=== PATIENT | male | born 1975 | race Caucasian/White ===

== ENCOUNTER 2020-05-07 12:42 | Emergency (ER) | payer OTHER, SELFPAY ==
--- NOTE | 2020-05-07 12:48 | ED.EYEPROB ---
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 Severity: moderate If Pain, Quality: sharp and aching Associated symptoms: none Treatments Prior to Arrival: irrigated eye Related Data Home Medications Medication Instructions Recorded Confirmed No Home Medications 05/07/20 05/07/20 Allergies Allergy/AdvReac Type Severity Reaction Status Date / Time No Known Allergies Allergy Verified 04/18/13 03:36 Review of Systems Review of Systems: All systems reviewed & are unremarkable except as noted in HPI and below PMFSH Past Medical History Medical History (Updated 05/07/20 @ 13:21 by Ray Ramires MD) No active medical problems Surgical History Surgical History (Updated 05/07/20 @ 13:16 by Ray Ramires MD) No pertinent past surgical history Social History Social History (Updated 05/07/20 @ 13:16 by Ray Ramires MD) Smoking packs per day: 1 Smoking cigarettes per day: 20.0 Smoking status: Current every day smoker Tobacco type: cigarettes Alcohol intake: former Substance use: current Substance use type: marijuana Other substance usage details: occasional Exam Const: General: healthy appearing, no acute distress and alert Nutritional Appearance: well nourished Orientation/consciousness: patient oriented x3 HENMT: Ears: external ears normal General nose exam: Normal external nose present Face and sinus: normal facial exam Mouth: Yes Normal oral and palatal mucosa present and Yes lip normal Eyes: Cornea: corneas abnormal on the right fluorescein used and foreign body metallic, with rust ring present and at clock position (3) Pupils: Equal, round and reactive pupils present EOM: EOMs intact bilaterally Neck: Neck: normal visual inspection Resp: Effort & Inspection: normal respiratory effort Auscultation: clear to auscultation bilaterally Cardio: Rate: regular rate Rhythm: regular rhythm GI: GI Palp: Yes Soft to palpation and No Tenderness to palpation present (GI) Auscultation: normal bowel sounds Back/Spine/Pelvis: Cervical Spine: cervical ROM normal Thoracic/Lumbar Spine: thoraco-lumbar ROM normal Skin: General skin exam: normal color Rashes: no rashes Neuro: General: patient oriented x3, moves all extremities and no focal motor deficits Speech: normal speech Gait exam (Neuro): Normal gait present Extrem: General: normal to inspection and no clubbing, cyanosis or edema Psych: Appearance: grossly normal Mental Status: mental status grossly normal Affect: normal affect Attitude: cooperative Thought content: Yes Normal thought content present Procedures FB Removal Eye Foreign Body #1: Foreign Body Removal Date: 05/07/20 Foreign Body Removal Time: 13:01 Location: eye (R) Topical anesthetic used: tetracaine Foreign body: metal Evidence of corneal penetration: No Technique: irrigation, cotton tip swab and electric janey Procedure performed under: direct visualization with magnification Post-procedure medication: topical anesthetic Patient tolerated procedure: well Complications: residual rust ring Discharge Plan Discharge Clinical Impression: Corneal rust ring of right eye Eye foreign body Qualifiers: Encounter type: initial encounter Laterality: right Qualified Code(s): T15.91XA - Foreign body on external eye, part unspecified, right eye, initial encounter Prescriptions: No Action No Home Medications RF: 0 Follow-up/Referrals: UNKNOWN,DOCTOR [Primary Care Provid
[2020-05-07 12:50] VITALS: BP 124/77; PULSE 87; RESP 20; TEMP 36.7; O2SAT 97
[2020-05-07] MEDS: TOBRAMYCIN 0.3% OPHTH SOLN 5 ML 2 DROP RIGHT EYE (13:30)
--- NOTE | 2020-05-07 13:31 | PC.NURSE ---
DR GEORGE CALLED FOR CONSULT
[2020-05-07 13:55] VITALS: RESP 17
--- NOTE | 2020-05-07 14:15 | PC.NURSE ---
APPOINTMENT SET UP WITH DR WH[place] IN [place] [phone]
== END 2020-05-07 13:55 | disposition home or self-care (01) ==
PROVIDERS: Emergency Provider Emergency Medicine
DX: T15.91XA Foreign body on external eye, part unspecified, right eye, initial encounter (principal)
CPT/HCPCS: 65220; 99282; 99283; A9270

== ENCOUNTER 2020-12-19 16:23 | Inpatient (IN) | payer OTHER, SELFPAY ==
[2020-12-19] VITALS (9 sets, daily range): BP systolic 105–153; BP diastolic 59–106; PULSE 100–135; RESP 18–28; TEMP 36.9–37.2; O2SAT 90–96
--- NOTE | ~2020-12-19 | XR_ITS ---
EXAMINATION: XR chest 1V portable DATE: 12/19/2020 16:44 INDICATION: Shortness of breath. Cough. TECHNIQUE: A single frontal view of the chest was obtained on 2 radiograph. COMPARISON: Chest 2 views 07/25/2012 FINDINGS: The patient is rotated to his right. A calcified left lung nodule and calcified left hilar lymph nodes are consistent with old granulomatous disease. There are airspace opacities at right lung apex with volume loss. There are lucencies and architectural distortion in the lungs, consistent wit h emphysema. No pleural effusion or pneumothorax. The heart size is normal. There are old healed righ t rib fractures. IMPRESSION: 1. Airspace opacities at right lung apex with volume loss, consistent with infection/scarring versus malignancy. Chest CT without contrast is recommended. 2. Emphysema. Reviewed, dictated and finalized at location A. IMPRESSION: 1. Airspace opacities at right lung apex with volume loss, consistent with infe ction/scarring versus malignancy. Chest CT without contrast is recommended. 2. Emphysema.
--- NOTE | ~2020-12-19 | CT_ITS ---
EXAMINATION:CT diagnostic chest w con DATE: 12/19/2020 19:41 INDICATION: Lung mass. TECHNIQUE: Computed tomography (CT) of the chest was performed with 75 mL Omnipaque 350 intravenous c ontrast. Automated exposure control and iterative reconstruction technique were employed. The dose-le ngth product (DLP) was 159.74 mGy-cm. COMPARISON: Chest single view 12/19/2020 FINDINGS: There is severe emphysema. A calcified left lung nodule and calcified left hilar and medias tinal lymph nodes are consistent with old granulomatous disease. There is a 6 mm nodule in left upper lobe. There are centrilobular nodules in medial segment right middle lobe. There is a 6 mm nodule in right middle lobe. There are airspace opacities with volume loss, cavitation, and bronchiectasis inv olving right upper lobe, consistent with scarring. There is bronchiectasis in superior segment right lower lobe. There are nodules in superior segment right lower lobe measuring up to 9 mm. No pleural e ffusion. The heart size is normal. There is mediastinal and left hilar lymphadenopathy. For example, a subaortic node measures 3.2 x 1.8 cm. There is mild thoracic spondylosis. There is mild chronic ant erior wedging of multiple vertebral bodies. IMPRESSION: 1. Multifocal lung disease, likely chronic infection. Noncontrast low-dose chest CT is recommended in 3 months to exclude malignancy. 2. Severe emphysema. 3. Mediastinal and left hilar lymphadenopathy, which may be reactive. Reviewed, dictated and finalized at location A. IMPRESSION: 1. Multifocal lung disease, likely chronic infection. Noncontrast low-dose ches t CT is recommended in 3 months to exclude malignancy. 2. Severe emphysema. 3. Mediastinal and left hilar lymphadenopathy, which may be reactive.
--- NOTE | 2020-12-19 16:26 | ECG_ITS ---
Measurements Intervals [place] Rate: 115 P: 80 IN: 126 QRS: 50 QRSD: 94 T: 80 QT: 302 QTc: 419 Interpretive Statements SINUS TACHYCARDIA RIGHT ATRIAL ENLARGEMENT POSSIBLE LEFT ATRIAL ENLARGEMENT BORDERLINE R WAVE PROGRESSION, ANTERIOR LEADS BASELINE ARTIFACT- I, II, III, AVR, AVL, AVF, V1-V6 ABNORMAL ECG Electronically Signed On 12-19-2020 21:37:43 CDT by Sean Ornelas D.O.
[2020-12-19] MEDS: methylPREDNISolone SOD SUCC 125 MG VIAL IV PUSH (16:50)
[2020-12-19 17:02] LABS: Basophils Percent Auto 0.8 % (0.2-1.2); Eosinophils Percent Auto 0.2 % (0-4.4); Hematocrit 55.2 % (42.0-52.0); Hemoglobin 17.3 g/dL (14.0-18.0); Immature Granulocyte Absolute 0.02 K/mm3 (0.00-0.031); Immature Granulocyte Percent A 0.4 % (0-0.5); Lymphocytes Absolute Auto 1.33 K/mm3 (0.9-3.2); Lymphocytes Percent Auto 25.5 % (18.3-44.2); Mean Corpuscular HGB Conc 31.3 g/dl (32-36); Mean Corpuscular Hemoglobin 27.8 pg (26-34); Mean Corpuscular Volume 88.6 fl (80-100); Mean Platelet Volume 9.7 fl (7.4-10.4); Monocytes Absolute Auto 0.7 K/mm3 (0.1-0.6); Monocytes Percent Auto 14.2 % (2.6-8.5); Neutrophils Absolute Auto 3.1 K/mm3 (1.3-6.7); Neutrophils Percent Auto 58.9 % (45.5-73.1); Platelet Count Result 185 k/mm3 (150-375); Red Blood Count 6.23 M/mm3 (4.6-6.20); Red Cell Distribution Width 14.6 % (11.5-14.5); White Blood Count 5.2 K/mm3 (4.5-10.0)
[2020-12-19] MEDS: IPRATROPIUM BR 0.02% INH SOLN 0.5 MG/2.5 ML VIAL INHALATION (17:06)
[2020-12-19] MEDS: ALBUTEROL SULFATE NEB 2.5 MG/0.5 ML INH 5 MG INHALATION (17:06)
[2020-12-19 17:11] LABS: Alveolar/Arterial O2 Gradient 49.4 mmHg; Base Excess ABG 3.5 mEq/l (+/-2.0); Fractional Inspired Oxygen 21 %; HCO3 ABG 31.6 mEq/l (22.0-26.0); Methemoglobin ABG 0.4 %THb (0-1.5); Oxygen Content ABG 11.2 %vol (16.0-22.0); Oxyhemoglobin 48.5 % THb (90.0-100.0); PO2 FiO2 Ratio Arterial Blood 1.25 %; Reduced Hemoglobin 50.1 %THb (0-5.0); Total Hemoglobin 16.5 g/dL (12.0-18.0); pH ABG 7.326 (7.350-7.450)
[2020-12-19 17:15] LABS: PCO2 ABG 61.9 mmHg (35.0-45.0); PO2 ABG 26.2 mmHg (80.0-100.0)
[2020-12-19 17:16] LABS: Device ROOM AIR; Modified Allen's Test Pass; Oxygen Saturation ABG 42.5 % (95.0-100.0); Site Drawn RIGHT RADIAL
[2020-12-19] MEDS: ALBUTEROL SULFATE NEB 2.5 MG/0.5 ML INH 10 MG INHALATION (17:21)
[2020-12-19] MEDS: IPRATROPIUM BR 0.02% INH SOLN 0.5 MG/2.5 ML VIAL 1 MG INHALATION (17:22)
[2020-12-19 19:08] LABS: Anion Gap 10 mmol/L (8-16); Blood Urea Nitrogen 15 mg/dL (9-20); Carbon Dioxide 30 mmol/L (22-30); Chloride 96 mmol/L (98-107); Estimated CRCL calculation 115 ml/min; Estimated Glomerular Filt Rate > 60; Glucose 120 mg/dL (75-110); Potassium 4.5 mmol/L (3.4-5.0); Sodium 136 mmol/L (137-145)
--- NOTE | 2020-12-19 20:09 | ED.SOB ---
HPI - SOB/Dyspnea General Chief Complaint: Shortness of Breath/Dyspnea Stated Complaint: SOB Time Seen by Provider: 12/19/20 16:31 Source: patient and family Mode of arrival: ambulatory Limitations: no limitations History of Present Illness HPI Narrative: 45-year-old with a history of COPD here with complaints of cough occasionally productive which is mostly mucoid in nature associated with shortness of breath for last 3 days. Patient states that this morning his symptoms got worse. He denies any fever or chills. He has not got his Covid vaccination. He is describing cough not on home oxygen. MD elicited complaint: shortness of breath and cough Pertinent past history: COPD Onset (ago): day(s) (3) Timing: constant Severity: moderate Exacerbating factors: nothing Relieving factors: bronchodilators Known history of: COPD Associated symptoms: denies other symptoms Related Data Home oxygen amount: none Allergies Allergy/AdvReac Type Severity Reaction Status Date / Time No Known Allergies Allergy Verified 05/07/20 13:58 Review of Systems Review of Systems: All systems reviewed & are unremarkable except as noted in HPI and below Constitutional: Constitutional: Reports no additional constitutional complaints Eyes: Eyes: Reports no additional eye complaints ENT: Reports system reviewed and no additional complaints, except as documented Cardiovascular: Cardiovascular: Reports no additional cardiovascular complaints Respiratory: Respiratory: Reports as per HPI Gastrointestinal: Gastrointestinal: Reports no additional gastrointestinal complaints Musculoskeletal: Musculoskeletal: Reports no additional musculoskeletal complaints Neurologic: Reports system reviewed and no additional complaints, except as documented Psychiatric: Psychiatric: Reports no additional psychiatric complaints PMFSH Past Medical History Medical History No active medical problems Surgical History Surgical History No pertinent past surgical history Social History Social History (System 05/07/20 @ 13:58 by Kait Dsouza) Smoking packs per day: 1 Smoking cigarettes per day: 20.0 Smoking status: Current every day smoker Tobacco type: cigarettes Alcohol intake: former Substance use: current Substance use type: marijuana Other substance usage details: occasional Exam Narrative: Exam Narrative: GENERAL:Ill -appearing, well-nourished, and in no acute distress. HEAD: Normocephalic, atraumatic. EYES: PERRLA and EOMI. NECK: Supple. CHEST: Bilateral wheeze . No respiratory distress. HEART: Regular rate and rhythm. No murmur heard. Normal peripheral pulses. ABDOMEN: Soft, nontender, nondistended, normal active bowel sounds. EXTREMITIES: Normal range of motion. No edema. SKIN: Warm, dry, no rash. NEURO: No focal deficits. Alert and oriented x3. PSYCH: Normal mood and affect. Course Course Emergency Course: Patient received an hour-long albuterol Atrovent treatment after which she states she is feeling much better , I discussed lab, CT findings with the patient and the family patient agreeable for admission. Vital Signs Vital signs: Vital Signs Temperature 36.9 C 12/19/20 16:25 Pulse Rate 124 H 12/19/20 16:25 Respiratory Rate 28 H 12/19/20 16:25 Blood Pressure 153/106 H 12/19/20 16:25 Pulse Oximetry 90 12/19/20 16:25 Temperature 36.9 C 12/19/20 16:25 Pulse Rate 118 H 12/19/20 19:08 Respiratory Rate 21 H 12/19/20 19:08 Blood Pressure 127/61 12/19/20 19:08 Pulse Oximetry 93 12/19/20 19:08 MDM - SOB/Dyspnea Lab Data Result diagrams: 12/19/20 16:53 12/19/20 18:36 Labs: Lab Results 12/19/20 12/19/20 12/19/20 Range/Units 16:53 17:04 18:36 WBC 5.2 (4.5-10.0) K/mm3 RBC 6.23 H (4.6-6.20) M/mm3 Hgb 17.3 (14.0-18.0) g/dL Hct 55.2
[2020-12-19] MEDS: SODIUM CHLORIDE 0.9% IV 1,000 ML 125 ML IV CONT (22:55)
--- NOTE | 2020-12-19 22:57 | ADMGEN ---
This patient, Hever Sandoval III, was admitted to [facility] Surg Room 317-01. Patient/family oriented to hospital policies and general routines including ID bracelet, bed and alarms, visiting hours, pain management, procedures, bathroom and other care routines, personal items, smoking policy, room service/diet, and visiting hours. Information on how to activate the Rapid Response Team has been discussed. Patient/Family are encouraged to report perceived risks to care and to ask questions if they do not understand what they are told or what they should do.
[2020-12-19 23:51] LABS: Glucose Point of Care 207 mg/dl (65-105)
[2020-12-19 23:56] LABS: Alveolar/Arterial O2 Gradient 23.3 mmHg; Base Excess ABG 2.9 mEq/l (+/-2.0); Fractional Inspired Oxygen 21 %; HCO3 ABG 28.7 mEq/l (22.0-26.0); Oxygen Content ABG 21.4 %vol (16.0-22.0); Oxygen Saturation ABG 93.5 % (95.0-100.0); PCO2 ABG 48.2 mmHg (35.0-45.0); PO2 ABG 68.7 mmHg (80.0-100.0); PO2 FiO2 Ratio Arterial Blood 3.27 %; Total Hemoglobin 16.4 g/dL (12.0-18.0); pH ABG 7.393 (7.350-7.450)
[2020-12-19 23:58] LABS: Device ROOM AIR; Modified Allen's Test Pass; Site Drawn LEFT RADIAL
[2020-12-20] VITALS (21 sets, daily range): BP systolic 111–132; BP diastolic 63–79; PULSE 92–124; RESP 15–24; TEMP 36.5–36.9; O2SAT 90–98
[2020-12-20] MEDS: methylPREDNISolone SOD SUCC 125 MG VIAL IV PUSH
--- NOTE | 2020-12-20 00:26 | PM.IMHP ---
H&P: HPI History of Present Illness Date/Time: 12/19/20 2033 this is a 45-year-old male patient who has a history of COPD and histoplasmosis. The patient stated that he does not do any street drugs and that he just uses marijuana that he purchases at the dispensary.The patient stated that he still continues to smoke at least a pack a cigarettes a day. The patient complains of having a cough that is productive very mucousy he has been having this shortness breath for 3 days. This morning it got worse. He denied any fever chills. He has not gotten his [place] vaccine. He does not wear oxygen at home. The patient said he has had thick sputum he was not sure of the color. He does see the kettle hand here. The patient stated that he recently was treated at [facility] with several antibiotics and that it was discovered that he has histoplasmosis. The staff was getting ready to call a rapid when I assessed the patient the patient was diaphoretic and the staff told me that he was unresponsive. I used to sternal rub and I got the patient to wake up and start talking to me. He was give me a history. We applied oxygen at 2 L and obtained ABGs. 1st ABG was mixed with a pH of 7.326 and a CO2 of 61.9. That was the ABG in the emergency room. When the patient was diaphoretic we recheck the ABG in the pH was 7.393 with a CO2 of 48.2. His PO2 was 68.7. We applied oxygen at 2 L per nasal cannula. Was performed earlier in the day was read as airspace opacities at right lung base apex with volume loss consistent with infectious scarring versus malignancy chest CT without contrast is recommended and he has emphysema. Chest CT was read as multifocal lung disease likely chronic infection noncontrast low-dose chest CT is recommended 3 month severe emphysema mediastinal and left hilar lymph in adenopathy which likely may be reactive. The patient was started on Solu-Medrol and neb treatment who was also started on Levaquin in the emergency room. Since the patient told me that he has a history of histoplasmosis I did start him on ampicillin be I consulted pharmacy on the dosing. The patient is being admitted to inpatient services on the date of service of 12/19/2020. Chief Complaint: Shortness of breath Review of Systems Review of Systems: All systems reviewed & are unremarkable except as noted in HPI and below Constitutional: Constitutional: Reports as per HPI and Reports no additional constitutional complaints Eyes: Eyes: Reports as per HPI and Reports no additional eye complaints ENT: Reports system reviewed and no additional complaints, except as documented and Reports Normal hearing present Cardiovascular: Cardiovascular: Reports no additional cardiovascular complaints Respiratory: Respiratory: Reports no additional respiratory complaints and Reports no additional respiratory complaints Gastrointestinal: Gastrointestinal: Reports as per HPI and Reports no additional gastrointestinal complaints Musculoskeletal: Musculoskeletal: Reports no additional musculoskeletal complaints Integumentary/Breasts: Skin/Breast: Reports system reviewed and no additional complaints, except as docu and Reports as per HPI Neurologic: Reports system reviewed and no additional complaints, except as documented, Reports as per HPI and Reports Normal hearing present Psychiatric: Psychiatric: Reports no additional psychiatric complaints and Reports as per HPI Endocrine: Endocrine: Reports no additional endocrine complaints Hematologic/Lymphatic: Hematologic/Lymphatic: Reports no additional hematologic/lymphatic complaints Allergic/Immunologic: Allergic/Immunologic: Reports no additional allergic/immunologic complaints [facility] Past Medical History Medical History (Updated 12/20/20 @ 00:48 by Santa Cooney NP) Histoplasmosis Marijuana use No active medical problems Tobacco abuse Surgical History Surgical History (Reviewed 12/19/20 @ 20:10 by Thang Perry
[2020-12-20] MEDS: ALBUTEROL SULFATE NEB 2.5 MG/0.5 ML INH INHALATION ×4 (02:18→20:58)
[2020-12-20] MEDS: IPRATROPIUM BR 0.02% INH SOLN 0.5 MG/2.5 ML VIAL INHALATION ×4 (02:18→20:58)
[2020-12-20 06:37] LABS: Basophils Percent Auto 0.2 % (0.2-1.2); Hematocrit 48.2 % (42.0-52.0); Hemoglobin 15.6 g/dL (14.0-18.0); Immature Granulocyte Absolute 0.02 K/mm3 (0.00-0.031); Immature Granulocyte Percent A 0.4 % (0-0.5); Lymphocytes Absolute Auto 0.63 K/mm3 (0.9-3.2); Lymphocytes Percent Auto 13.3 % (18.3-44.2); Mean Corpuscular HGB Conc 32.4 g/dl (32-36); Mean Corpuscular Hemoglobin 27.8 pg (26-34); Mean Corpuscular Volume 85.9 fl (80-100); Mean Platelet Volume 9.7 fl (7.4-10.4); Monocytes Absolute Auto 0.2 K/mm3 (0.1-0.6); Monocytes Percent Auto 3.2 % (2.6-8.5); Neutrophils Absolute Auto 3.9 K/mm3 (1.3-6.7); Neutrophils Percent Auto 82.9 % (45.5-73.1); Platelet Count Result 175 k/mm3 (150-375); Red Blood Count 5.61 M/mm3 (4.6-6.20); Red Cell Distribution Width 13.3 % (11.5-14.5); White Blood Count 4.8 K/mm3 (4.5-10.0)
[2020-12-20 06:53] LABS: Anion Gap 9 mmol/L (8-16); Blood Urea Nitrogen 16 mg/dL (9-20); Calcium 8.5 mg/dL (8.4-10.2); Carbon Dioxide 28 mmol/L (22-30); Chloride 98 mmol/L (98-107); Estimated CRCL calculation 150 ml/min; Estimated Glomerular Filt Rate > 60; Glucose 181 mg/dL (75-110); Potassium 3.9 mmol/L (3.4-5.0); Sodium 135 mmol/L (137-145)
[2020-12-20 09:08] LABS: Alanine Aminotransferase 16 U/L (4-50); Albumin Level 3.8 g/dL (3.5-5.1); Alkaline Phosphatase 75 U/L (38-126); Aspartate Amino Transferase 27 U/L (17-59); Bilirubin,Total 0.2 mg/dL (0.2-1.3); CRP 6.4 mg/dL (<1.0)
[2020-12-20 09:15] LABS: NT Pro B Type Natriuretic Pept 115 pg/mL (5-100)
[2020-12-20] MEDS: ENOXAPARIN 40 MG/0.4 ML SYRINGE SUB-Q (09:27)
[2020-12-20 09:47] LABS: HIV 1/2 Ab P24 Ag Result Negative (Negative)
--- NOTE | 2020-12-20 10:29 | PM.CNPUL ---
Assessment and Plan Assessment and plan (1) Acute exacerbation of chronic obstructive airways disease: Code(s): J44.1 - Chronic obstructive pulmonary disease with (acute) exacerbation Status: Acute Assessment and Plan: Patient has severe panlobular emphysema on a CT scan of the chest and is a current tobacco user. Patient has a 3 day acute change in his pulmonary symptoms consistent with a COPD exacerbation and/or pneumonia. His CT scan does show focal consolidation in the right upper lobe although this may be chronic fibrosis. I will continue albuterol 2.5 mg nebs Q 6 hours, ipratropium 0.5 mg nebs q.6 hours and since he has no wheezing now I will discontinue his methylprednisolone and place him on prednisone 50. I will continue azithromycin ceftriaxone for possible community-acquired pneumonia. Will follow with you. (2) Histoplasmosis: Code(s): B39.9 - Histoplasmosis, unspecified Status: Chronic Assessment and Plan: By patient's account he has a history of histoplasmosis and finished 1 year of itraconazole and stabilized until 3 days ago when he developed an acute illness. I do not think this is an acute histoplasmosis infection or reactivation at this time. Urine histo antigen has been sent. History of Present Illness History of Present Illness Consult date: 12/20/20 Reason for consult: COPD Chief complaint: copd exacerbation, pneumonia Narrative: Sh 45-year-old man with a history of COPD, tobacco use, pulmonary histoplasmosis who presents with 3 days of headache, fatigue, shortness of breath, sweats, increased phlegm production and dyspnea on exertion. Patient denies any hemoptysis or chest pain. Of note patient states that his sister and daughter both recently had bronchitis and he is concerned that he caught an infection from them. Patient presented to the emergency department with a blood gas on room air of 7.33/62/26. Repeat blood gas on room air demonstrated a pH of 7.39/48/67. Patient had a white blood cell count of 5.2K. Patient had a CT scan of the chest that demonstrated severe panlobular emphysema with chronic scarring of the right upper lobe. Patient was admitted to the hospital and treated for COPD exacerbation and pneumonia with antibiotics, bronchodilators and Solu-Medrol. On the floor patient had altered mental status and was briefly placed on BiPAP 12/20 Today I saw the patient and he tells me that he is 25-50% better. He says that his cough is better and he is producing less phlegm and he can move around easy. Patient denies any hemoptysis. At baseline patient states that he can walk 2 blocks and then has to stop for dyspnea on exertion. He is not on any home oxygen and states that he just takes an albuterol inhaler. Regarding his histoplasmosis patient states that he was worked up in [address] [place] [address] and saw occupational therapy co director there (I do not have any records) who did multiple tests and after 6 months of worsening shortness of breath they then told him he had histoplasmosis. He was on and off itraconazole for approximately 45 days and then he would take a break for 45 days for approximately a year and 2018. In 2019 he tells me that they told him he should take a trick on is all for 1 year which he did. Patient stabilized over that year. Patient. The itraconazole in May of 2020. Patient states that he was stable through June, July, August, September and October up until 3 days ago when he developed this acute illness. regarding his COPD patient is a current tobacco user. Patient started smoking at age 14 smoke 1 pack per day until recently when he has cut down to 2-3 cigarettes a day. This results in a total of 35 pack years. Patient denies vaping. Patient does smoke marijuana about every 1 and half weeks. Patient did take care 1 from [id number]. 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 DATA: EXAMINATIO
[2020-12-20] MEDS: predniSONE 10 MG TABLET 50 MG PO (12:22)
--- NOTE | 2020-12-20 14:59 | PM.IMPN ---
Progress Note: A&P Assessment and Plan (1) CAP (community acquired pneumonia): Code(s): J18.9 - Pneumonia, unspecified organism Status: Acute Assessment and Plan: Symptoms consistent with pneumonia -sputum culture and histoplasmosis antigen ordered -continue ceftriaxone, azithromycin, and prednisone -pulmonology is consulted, I appreciate the recommendations -CT shows possible chronic infection, awaiting records -will draw IgG. HIV negative -blood cultures pending -influenza and COVID-19 less likely -consider infectious disease consult, await records 1st (2) Acute exacerbation of chronic obstructive airways disease: Code(s): J44.1 - Chronic obstructive pulmonary disease with (acute) exacerbation Status: Acute Assessment and Plan: Patient is improving on oral steroids, antibiotics and oxygen therapy -continue as above (3) Histoplasmosis: Code(s): B39.9 - Histoplasmosis, unspecified Status: Chronic Assessment and Plan: Will get records from [facility] -See pulmonoly note -work up in progress (4) Tobacco abuse: Code(s): Z72.0 - Tobacco use Status: Chronic Assessment and Plan: Pt denies need for nicotine patch -patient understands he needs to quit smoking (5) Marijuana use: Code(s): F12.90 - Cannabis use, unspecified, uncomplicated Status: Chronic Assessment and Plan: Patient participates in legal marijuana consumption and purchases his marijuana at the dispensary (6) Sinus tachycardia: Code(s): R00.0 - Tachycardia, unspecified Status: Acute Assessment and Plan: EKG with sinus tachycardia likely related to chronic lung disease on top of pneumonia -BNP less than 300, CHF less likely -EKG reviewed with no significant abnormalities. Patient denies chest pain -PE less likely, wells criteria 1.5 points which is unlikely (7) Acute respiratory failure with hypoxia: Code(s): J96.01 - Acute respiratory failure with hypoxia Status: Acute Assessment and Plan: 2/2 to above -continue o2 for sats >90 Time Spent With Patient Time with patient: 25 - 35 minutes Subjective Date/time seen: 12/20/20 14:59 Interval history: Pt is a 45-year-old male here for pneumonia. Patient was seen today and states he is feeling better but is still short of breath. He is coughing a lot this morning which has got a little better. He has some dyspnea on exertion to the bathroom and back but overall feeling better. He has chills and a headache He denies nausea, vomiting, fevers, chills, diarrhea or constipation. Review of Systems Review of Systems: All systems reviewed & are unremarkable except as noted in HPI and below Exam Narrative: Exam Narrative: General: Well developed well nourished patient in NAD HEENT: normocephalic Neck: supple Neuro: Alert and oriented x4 CV: Tachycardia noted on exam Resp: Decreased breath sounds. Coarse breath sounds in the right lung. Abd: Soft, non distended. No pain to palpation. Positive bowel sounds Extremities: No swelling, erythema, or pain to palpation. Objective Data Vital Signs Vital Signs: Vital Signs - 24 hr 12/19/20 16:25 12/19/20 16:31 12/19/20 17:06 Temperature 98.4 F Pulse Rate 124 H 125 H Respiratory Rate 28 H 24 H Blood Pressure 153/106 H Pulse Oximetry 90 93 12/19/20 17:20 12/19/20 18:24 12/19/20 19:08 Temperature Pulse Rate 135 H 113 H 118 H Respiratory Rate 28 H 28 H 21 H Blood Pressure 127/61 Pulse Oximetry 93 12/19/20 20:58 12/19/20 22:40 12/19/20 22:43 Temperature 98.7 F 98.9 F Pulse Rate 100 110 H 108 H Respiratory Rate 18 28 H 20 Blood Pressure 105/59 L 133/84 126/81 Pulse Oximetry 96 96 96 12/20/20 00:00 12/20/20 00:15 12/20/20 02:16 Temperature Pulse Rate 92 92 108 H Respiratory Rate 15 24 H Blood Pressure Pulse Oximetry 95 95 95
[2020-12-20] MEDS: AMPICILLIN 1 GM/NS 50 ML 1 GM/50 ML BAG IVPB (17:34)
[2020-12-20 18:22] LABS: Benzodiazepines Screen Urine Negative (Negative)
[2020-12-20 18:23] LABS: Creatine Kinase 32 U/L (55-170)
[2020-12-20 18:34] LABS: Cannabinoid Screen Urine Negative (Negative); Cocaine Screen Urine Negative (Negative); Methadone Screen Urine Negative (Negative); Opiate Screen Urine Negative (Negative); Phencyclidine Screen Urine Negative (Negative)
[2020-12-20 18:37] LABS: Barbiturate Screen Urine Negative (Negative)
[2020-12-20 19:38] LABS: Procalcitonin 0.1 ng/mL
[2020-12-21] VITALS (18 sets, daily range): BP systolic 111–129; BP diastolic 64–69; PULSE 96–137; RESP 14–24; TEMP 36.4–36.6; O2SAT 93–95
--- NOTE | 2020-12-21 | ECHO_ITS ---
Patient Info Name: Hever Sandoval Age: 45 years : 1975 Gender: Male Ht: 74 in Wt: 178 lbs BSA: 2.05 m2 HR: 102 bpm BP: 129 / 67 mmHg Technical Quality: Fair Exam Date: 12/21/2020 11:19 AM Exam Location: [facility] Pul[facility] Patient Status: Inpatient Admit Date: 12/19/2020 Staff Ordering Physician: Maria D Cortés PA-C Body Presser: Kofi Jones RDCS, RT Attending Provider: Maria D Cortés PA-C Referring Physician: Milana DO; Exam Type: CA echo doppler color flow Study Info Indications R00.0 - Tachycardia, unspecified Complete two-dimensional, color flow and Doppler transthoracic echocardiogram is performed. Summary 1. Complete two-dimensional, color flow and Doppler transthoracic echocardiogram is performed. 2. Left ventricular chamber dimension is normal. 3. Left ventricular systolic function is normal, estimated at 60-65%. 4. The left ventricular diastolic function is grade I diastolic dysfunction. 5. E/e' 7 is not elevated. Left Ventricle E/e' 7 is not elevated. Left ventricular chamber dimension is normal. Left ventricular systolic function is normal, estimated at 60-65%. The left ventricular diastolic function is grade I diastolic dysfunction. Right Ventricle Right ventricular systolic function is normal with normal TAPSE 2.1 cm. Right ventricular chamber dimension is normal. Left Atria Left atrial chamber dimension is normal. Right Atria Right atrial chamber dimension is normal. Aortic Valve The aortic valve is trileaflet. There is no aortic valve stenosis. There is no aortic valve regurgitation. Pulmonic Valve There is no pulmonic regurgitation. Mitral Valve There is no mitral valve stenosis. There is no mitral valve regurgitation. Tricuspid Valve There is no tricuspid valve regurgitation. Pericardium/Pleural There is no pericardial effusion. Inferior Vena Cava Normal inferior vena cava with >50% collapse upon inspiration consistent with normal right atrial pressure, 5 mmHg. Aorta The aortic root size at the sinus of Valsalva is normal. Left Ventricular Outflow Tract Name Value Normal LVOT 2D LVOT Diameter 2.1 cm LVOT Doppler LVOT Peak Gradient 3 mmHg LVOT Mean Gradient 2 mmHg LVOT VTI 14 cm LVOT VTI/AV VTI Ratio 0.8 LVOT Stroke Volume 49 ml LVOT CO 4.4 l/min LVOT CI 2.1 l/min/m2 Mitral Valve Name Value Normal MV Doppler MV Decel [place] 291 cm/s2 MV PHT 73 ms MV Area (PHT) 3.0 cm2 4.0-5.0 MV Diastolic Function
[2020-12-21] MEDS: AMPICILLIN 1 GM/NS 50 ML 1 GM/50 ML BAG IVPB ×2 (00:29→07:00)
[2020-12-21] MEDS: IPRATROPIUM BR 0.02% INH SOLN 0.5 MG/2.5 ML VIAL INHALATION ×4 (01:57→21:05)
[2020-12-21] MEDS: ALBUTEROL SULFATE NEB 2.5 MG/0.5 ML INH INHALATION ×4 (01:57→21:06)
[2020-12-21 06:47] LABS: Basophils Percent Auto 0.2 % (0.2-1.2); Hematocrit 47.2 % (42.0-52.0); Hemoglobin 15.3 g/dL (14.0-18.0); Immature Granulocyte Absolute 0.05 K/mm3 (0.00-0.031); Immature Granulocyte Percent A 0.3 % (0-0.5); Lymphocytes Percent Auto 15.7 % (18.3-44.2); Mean Corpuscular HGB Conc 32.4 g/dl (32-36); Mean Corpuscular Hemoglobin 28.2 pg (26-34); Mean Corpuscular Volume 86.9 fl (80-100); Mean Platelet Volume 9.8 fl (7.4-10.4); Monocytes Absolute Auto 1.4 K/mm3 (0.1-0.6); Monocytes Percent Auto 8.5 % (2.6-8.5); Neutrophils Percent Auto 75.3 % (45.5-73.1); Platelet Count Result 216 k/mm3 (150-375); Red Blood Count 5.43 M/mm3 (4.6-6.20); Red Cell Distribution Width 13.7 % (11.5-14.5); White Blood Count 15.9 K/mm3 (4.5-10.0)
[2020-12-21 07:26] LABS: Anion Gap 4 mmol/L (8-16); Blood Urea Nitrogen 24 mg/dL (9-20); Calcium 8.6 mg/dL (8.4-10.2); Carbon Dioxide 34 mmol/L (22-30); Chloride 98 mmol/L (98-107); Estimated CRCL calculation 130 ml/min; Estimated Glomerular Filt Rate > 60; Glucose 104 mg/dL (75-110); Potassium 4.7 mmol/L (3.4-5.0); Sodium 136 mmol/L (137-145)
[2020-12-21 08:02] LABS: Hemoglobin A1C 5.9 % (<5.7)
[2020-12-21] MEDS: ENOXAPARIN 40 MG/0.4 ML SYRINGE SUB-Q (09:47)
--- NOTE | 2020-12-21 14:20 | PM.IMPN ---
Progress Note: A&P Assessment and Plan (1) CAP (community acquired pneumonia): Code(s): J18.9 - Pneumonia, unspecified organism Status: Acute Assessment and Plan: Symptoms consistent with pneumonia -sputum culture did not show any organisms and histoplasmosis antigen pending -continue ceftriaxone and azithromycin -pulmonology is consulted, I appreciate the recommendations -CT shows possible chronic infection, awaiting records -HIV negative, IgG pending -influenza and COVID-19 less likely -spoke with Dr. guerrier who agrees with the current treatment at this time (2) Acute exacerbation of chronic obstructive airways disease: Code(s): J44.1 - Chronic obstructive pulmonary disease with (acute) exacerbation Status: Acute Assessment and Plan: Patient is improving -continue as above (3) Histoplasmosis: Code(s): B39.9 - Histoplasmosis, unspecified Status: Chronic Assessment and Plan: Awaiting records from [facility] -See pulmonology note -work up in progress (4) Tobacco abuse: Code(s): Z72.0 - Tobacco use Status: Chronic Assessment and Plan: Pt denies need for nicotine patch -patient understands he needs to quit smoking (5) Marijuana use: Code(s): F12.90 - Cannabis use, unspecified, uncomplicated Status: Chronic Assessment and Plan: Patient participates in legal marijuana consumption and purchases his marijuana at the dispensary (6) Sinus tachycardia: Code(s): R00.0 - Tachycardia, unspecified Status: Acute Assessment and Plan: EKG with sinus tachycardia likely related to chronic lung disease on top of pneumonia -heart rate was 98 on exam -BNP less than 300, CHF less likely -EKG reviewed with no significant abnormalities. Patient denies chest pain -PE less likely, wells criteria 1.5 points which is unlikely (7) Acute respiratory failure with hypoxia: Code(s): J96.01 - Acute respiratory failure with hypoxia Status: Acute Assessment and Plan: Resolved (8) Bacteremia: Code(s): R78.81 - Bacteremia Status: Acute Assessment and Plan: Both blood cultures are growing different types of bacteria which points to contamination -will continue with ceftriaxone and azithromycin at this time and redraw new blood cultures -infectious disease (Dr. Guerrier) was consulted and I talked to him by phone who agrees with the current treatment plan Subjective Date/time seen: 12/21/20 14:20 Interval history: Pt is a 45-year-old male here for pneumonia. Patient was seen today and states he is feeling better. He is off the oxygen and did not have any shortness of breath when walking to the bathroom. He is still coughing up a lot of phlegm. He is also having some night sweats but no further body aches. He denies chest pain, nausea, vomiting, diarrhea or constipation. Mother at bedside and answered all of her questions. Exam Narrative: Exam Narrative: General: Well developed well nourished patient in NAD HEENT: normocephalic Neck: supple Neuro: Alert and oriented x4 CV: Tachycardia noted on exam. Telemetry shows normal sinus rhythm of 98 but his heart rate was up to 150 at 5:00 a.m. Resp: Decreased breath sounds. Coarse breath sounds in the right lung. Abd: Soft, non distended. No pain to palpation. Positive bowel sounds Extremities: No swelling, erythema, or pain to palpation. Objective Data Vital Signs Vital Signs: Vital Signs - 24 hr 12/20/20 14:28 12/20/20 16:00 12/20/20 20:00 Temperature Pulse Rate 124 H 113 H 107 H Respiratory Rate 20 Blood Pressure Pulse Oximetry 12/20/20 21:00 12/20/20 21:10 12/20/20 22:00 Temperature 98.5 F Pulse Rate 103 H 107 H 101 H Respiratory Rate 24 H 22 H 20 Blood Pressure 111/68 Pulse Oximetry 91 91 97 12/20/20 23:29 12/21/20 00:00 12/21/20 02:00 Temperature
--- NOTE | 2020-12-21 14:58 | PM.PNPUL ---
Progress Note: A&P Assessment and Plan (1) Acute exacerbation of chronic obstructive airways disease: Code(s): J44.1 - Chronic obstructive pulmonary disease with (acute) exacerbation Status: Acute Assessment and Plan: 12/20 Patient has severe panlobular emphysema on a CT scan of the chest and is a current tobacco user. Patient has a 3 day acute change in his pulmonary symptoms consistent with a COPD exacerbation and/or pneumonia. His CT scan does show focal consolidation in the right upper lobe although this may be chronic fibrosis. I will continue albuterol 2.5 mg nebs Q 6 hours, ipratropium 0.5 mg nebs q.6 hours and since he has no wheezing now I will discontinue his methylprednisolone and place him on prednisone 50. I will continue azithromycin ceftriaxone for possible community-acquired pneumonia. 12/21 Patient continues to improve and states he is 80% back to baseline. He is on room air with saturations 93%. He has no wheezes today and at this time I will discontinue his systemic steroids and place him on budesonide 0.5 mg nebulized b.i.d., continue albuterol and ipratropium nebulizers at this time. I will continue ceftriaxone and azithromycin for possible community-acquired pneumonia. Id has been consulted regarding his bacillus and Gram-positive cocci in his blood cultures from 12/19 Will follow with you. (2) Histoplasmosis: Code(s): B39.9 - Histoplasmosis, unspecified Status: Chronic Assessment and Plan: By patient's account he has a history of histoplasmosis and finished 1 year of itraconazole and stabilized until 3 days ago when he developed an acute illness. I do not think this is an acute histoplasmosis infection or reactivation at this time. Urine histo antigen and urine Histoplasma antibody has been sent and are pending. Subjective Date/time seen: 12/21/20 14:58 Interval history: Reason for consult: COPD Chief complaint: copd exacerbation, pneumonia Narrative: Sh 45-year-old man with a history of COPD, tobacco use, pulmonary histoplasmosis who presents with 3 days of headache, fatigue, shortness of breath, sweats, increased phlegm production and dyspnea on exertion. Patient denies any hemoptysis or chest pain. Of note patient states that his sister and daughter both recently had bronchitis and he is concerned that he caught an infection from them. Patient presented to the emergency department with a blood gas on room air of 7.33/62/26. Repeat blood gas on room air demonstrated a pH of 7.39/48/67. Patient had a white blood cell count of 5.2K. Patient had a CT scan of the chest that demonstrated severe panlobular emphysema with chronic scarring of the right upper lobe. Patient was admitted to the hospital and treated for COPD exacerbation and pneumonia with antibiotics, bronchodilators and Solu-Medrol. On the floor patient had altered mental status and was briefly placed on BiPAP At baseline patient states that he can walk 2 blocks and then has to stop for dyspnea on exertion. He is not on any home oxygen and states that he just takes an albuterol inhaler. Regarding his histoplasmosis patient states that he was worked up in [address] [place] [address] and saw professional athlete there (I do not have any records) who did multiple tests and after 6 months of worsening shortness of breath they then told him he had histoplasmosis. He was on and off itraconazole for approximately 45 days and then he would take a break for 45 days for approximately a year and 2018. In 2019 he tells me that they told him he should take a trick on is all for 1 year which he did. Patient stabilized over that year. Patient. The itraconazole in May of 2020. Patient states that he was stable through June, July, August, September and October up until 3 days ago when he developed this acute illness. regarding his COPD patient is a current tobacco user. Patient started smoking at age 14 smoke 1 pack per day until re
[2020-12-21] MEDS: BUDESONIDE RESPULE NEB 0.5 MG/2 ML AMP INHALATION (21:05)
[2020-12-22] VITALS (19 sets, daily range): BP systolic 113–117; BP diastolic 61–69; PULSE 93–131; RESP 16–20; TEMP 36.5–36.8; O2SAT 93–98
[2020-12-22] MEDS: IPRATROPIUM BR 0.02% INH SOLN 0.5 MG/2.5 ML VIAL INHALATION ×4 (03:14→20:59)
[2020-12-22] MEDS: ALBUTEROL SULFATE NEB 2.5 MG/0.5 ML INH INHALATION ×4 (03:14→20:59)
[2020-12-22 06:41] LABS: Basophils Percent Auto 0.3 % (0.2-1.2); Eosinophils Absolute Auto 0.1 K/mm3 (0-0.3); Eosinophils Percent Auto 0.8 % (0-4.4); Hematocrit 46.1 % (42.0-52.0); Hemoglobin 14.6 g/dL (14.0-18.0); Immature Granulocyte Absolute 0.02 K/mm3 (0.00-0.031); Immature Granulocyte Percent A 0.2 % (0-0.5); Lymphocytes Absolute Auto 3.84 K/mm3 (0.9-3.2); Lymphocytes Percent Auto 44.2 % (18.3-44.2); Mean Corpuscular HGB Conc 31.7 g/dl (32-36); Mean Corpuscular Volume 88.5 fl (80-100); Mean Platelet Volume 10.1 fl (7.4-10.4); Monocytes Absolute Auto 0.6 K/mm3 (0.1-0.6); Monocytes Percent Auto 7.2 % (2.6-8.5); Neutrophils Absolute Auto 4.1 K/mm3 (1.3-6.7); Neutrophils Percent Auto 47.3 % (45.5-73.1); Platelet Count Result 196 k/mm3 (150-375); Red Blood Count 5.21 M/mm3 (4.6-6.20); Red Cell Distribution Width 14.1 % (11.5-14.5); White Blood Count 8.7 K/mm3 (4.5-10.0)
[2020-12-22 06:50] LABS: Anion Gap 1 mmol/L (8-16); Blood Urea Nitrogen 22 mg/dL (9-20); Carbon Dioxide 34 mmol/L (22-30); Chloride 101 mmol/L (98-107); Estimated CRCL calculation 130 ml/min; Estimated Glomerular Filt Rate > 60; Glucose 93 mg/dL (75-110); Potassium 4.1 mmol/L (3.4-5.0); Sodium 136 mmol/L (137-145)
[2020-12-22] MEDS: ENOXAPARIN 40 MG/0.4 ML SYRINGE SUB-Q (08:31)
[2020-12-22] MEDS: BUDESONIDE RESPULE NEB 0.5 MG/2 ML AMP INHALATION ×2 (09:11→20:59)
--- NOTE | 2020-12-22 10:45 | PM.IMPN ---
Progress Note: A&P Assessment and Plan (1) CAP (community acquired pneumonia): Code(s): J18.9 - Pneumonia, unspecified organism Status: Acute Assessment and Plan: Symptoms consistent with pneumonia -sputum culture did not show any organisms and histoplasmosis antigen pending -continue ceftriaxone and azithromycin, the patient is improving with this therapy -pulmonology is consulted, I appreciate the recommendations -CT shows possible chronic infection -HIV negative, IgG pending -influenza and COVID-19 less likely -spoke with Dr. guerrier who agrees with the current treatment at this time (2) Acute exacerbation of chronic obstructive airways disease: Code(s): J44.1 - Chronic obstructive pulmonary disease with (acute) exacerbation Status: Acute Assessment and Plan: Patient is improving -continue as above (3) Histoplasmosis: Code(s): B39.9 - Histoplasmosis, unspecified Status: Chronic Assessment and Plan: Awaiting records from [facility] -See pulmonology note -work up in progress (4) Tobacco abuse: Code(s): Z72.0 - Tobacco use Status: Chronic Assessment and Plan: Pt denies need for nicotine patch -patient understands he needs to quit smoking (5) Marijuana use: Code(s): F12.90 - Cannabis use, unspecified, uncomplicated Status: Chronic Assessment and Plan: Patient participates in legal marijuana consumption and purchases his marijuana at the dispensary (6) Sinus tachycardia: Code(s): R00.0 - Tachycardia, unspecified Status: Acute Assessment and Plan: EKG with sinus tachycardia likely related to chronic lung disease on top of pneumonia -heart rate 102 on exam but was tachy last night -BNP less than 300, CHF less likely -EKG reviewed with no significant abnormalities. Patient denies chest pain -PE less likely, wells criteria 1.5 points which is unlikely -check TSH (7) Acute respiratory failure with hypoxia: Code(s): J96.01 - Acute respiratory failure with hypoxia Status: Acute Assessment and Plan: Resolved (8) Bacteremia: Code(s): R78.81 - Bacteremia Status: Acute Assessment and Plan: Both blood cultures are growing different types of bacteria which points to contamination -will continue with ceftriaxone and azithromycin at this time and redraw new blood cultures -infectious disease (Dr. Guerrier) was consulted and I talked to him by phone who agrees with the current treatment plan -likely discharge tomorrow if blood cultures remain negative and patient continues to improve Subjective Date/time seen: 12/22/20 10:45 Interval history: Pt is a 45-year-old male here for pneumonia. Patient was seen today and states he is improving by the day. He feels much better and is off oxygen. He is coughing but not as much. He has no palpitations or chest pain. He is eating and drinking well without issue. He is able to walk to the bathroom without shortness of breath. Exam Narrative: Exam Narrative: General: Well developed well nourished patient in NAD HEENT: normocephalic Neck: supple Neuro: Alert and oriented x4 CV: Slight Tachycardia noted on exam. Telemetry shows heart rate of 102 that appears to be sinus tach. Last night it looks like he was up to 150 and appeared regular Resp: Decreased breath sounds. Coarse breath sounds on the top portion of the right lung. Abd: Soft, non distended. No pain to palpation. Positive bowel sounds Extremities: No swelling, erythema, or pain to palpation. Objective Data Vital Signs Vital Signs: Vital Signs - 24 hr 12/21/20 12:00 12/21/20 14:00 12/21/20 14:37 Temperature 97.9 F Pulse Rate 122 H 137 H 118 H Respiratory Rate 14 24 H Blood Pressure 111/69 Pulse Oximetry 93 93 12/21/20 14:44 12/21/20 20:00 12/21/20 21:06 Temperature Pulse Rate 125 H 99 117 H R
--- NOTE | 2020-12-22 13:08 | PM.PNPUL ---
Progress Note: A&P Assessment and Plan (1) Acute exacerbation of chronic obstructive airways disease: Code(s): J44.1 - Chronic obstructive pulmonary disease with (acute) exacerbation Status: Acute Assessment and Plan: 12/20 Patient has severe panlobular emphysema on a CT scan of the chest and is a current tobacco user. Patient has a 3 day acute change in his pulmonary symptoms consistent with a COPD exacerbation and/or pneumonia. His CT scan does show focal consolidation in the right upper lobe although this may be chronic fibrosis. I will continue albuterol 2.5 mg nebs Q 6 hours, ipratropium 0.5 mg nebs q.6 hours and since he has no wheezing now I will discontinue his methylprednisolone and place him on prednisone 50. I will continue azithromycin ceftriaxone for possible community-acquired pneumonia. 12/21 Patient continues to improve and states he is 80% back to baseline. He is on room air with saturations 93%. He has no wheezes today and at this time I will discontinue his systemic steroids and place him on budesonide 0.5 mg nebulized b.i.d., continue albuterol and ipratropium nebulizers at this time. I will continue ceftriaxone and azithromycin for possible community-acquired pneumonia. Id has been consulted regarding his bacillus and Gram-positive cocci in his blood cultures from 12/19. 12/22 Patient continues to improve and states he is back to baseline. He is on room air with saturations 93%. He has minimal end expiratory wheezes at this time on budesonide 0.5 mg nebulized b.i.d., continue albuterol and ipratropium nebulizers Q 6 at this time. I will continue ceftriaxone and azithromycin (antibiotics started 12/19) for possible community-acquired pneumonia. ID has been consulted by phone and agrees with treatment regarding his bacillus and Gram-positive cocci in his blood cultures from 12/19. Repeat blood cultures negative from 12/21. Suitable for discharge from pulmonary perspective on 12/23 once repeat blood cultures on 12/21 negative for 48 hours. Discharge on these pulmonary medications: Levaquin 750 mg PO Q day for 7 days Beta agonist and muscarinic antagonist that insurance will cover (Anoro Ellipta 62.5/25 at 1 puff Q day, stiolto respimat 2.5/2.5 at 1 puff BID, combivent respimat at 2 puffs Q 4 HR or separate albuterol and atrovent inhalers at 2 puffs Q 4 HR). resuce albuterol inhaler 2 puffs Q 4 H PRN SOB or wheezing Oxygen per home O2 assessment (I ordered for today) Follow up in 2-3 weeks with his previous pulmonary team in [facility] Will sign off, please call with any questions. (2) Histoplasmosis: Code(s): B39.9 - Histoplasmosis, unspecified Status: Chronic Assessment and Plan: By patient's account he has a history of histoplasmosis and finished 1 year of itraconazole and stabilized until 3 days ago when he developed an acute illness. I do not think this is an acute histoplasmosis infection or reactivation at this time. Urine histo antigen and urine Histoplasma antibody has been sent and are pending. Follow up in 2-3 weeks with his previous pulmonary team in [facility] who prescribed this treatment. Subjective Date/time seen: 12/22/20 13:08 Interval history: Reason for consult: COPD Chief complaint: copd exacerbation, pneumonia Narrative: Sh 45-year-old man with a history of COPD, tobacco use, pulmonary histoplasmosis who presents with 3 days of headache, fatigue, shortness of breath, sweats, increased phlegm production and dyspnea on exertion. Patient denies any hemoptysis or chest pain. Of note patient states that his sister and daughter both recently had bronchitis and he is concerned that he caught an infection from them. Patient presented to the emergency department with a blood gas on room air of 7.33/62/26. Repeat blood gas on room air demonstrated a pH of 7.39/48/67. Patient had a white blood cell count of 5.2K. Patient had a CT scan of the chest that
[2020-12-22 20:47] LABS: Vancomycin Trough < 5.0 ug/mL (10.0-20.0)
[2020-12-23] VITALS: PULSE 98
[2020-12-23] MEDS: ALBUTEROL SULFATE NEB 2.5 MG/0.5 ML INH INHALATION (02:30)
[2020-12-23 02:31] VITALS: PULSE 91; RESP 20
[2020-12-23] MEDS: IPRATROPIUM BR 0.02% INH SOLN 0.5 MG/2.5 ML VIAL INHALATION (02:31)
[2020-12-23 02:38] VITALS: PULSE 93; RESP 20
[2020-12-23 04:00] VITALS: PULSE 100
[2020-12-23 06:00] VITALS: BP 117/78; PULSE 97; RESP 18; TEMP 36.3; O2SAT 93
[2020-12-23 06:46] LABS: Basophils Percent Auto 0.4 % (0.2-1.2); Eosinophils Absolute Auto 0.1 K/mm3 (0-0.3); Eosinophils Percent Auto 1.2 % (0-4.4); Hematocrit 48.4 % (42.0-52.0); Hemoglobin 15.5 g/dL (14.0-18.0); Immature Granulocyte Absolute 0.01 K/mm3 (0.00-0.031); Immature Granulocyte Percent A 0.1 % (0-0.5); Lymphocytes Absolute Auto 3.34 K/mm3 (0.9-3.2); Lymphocytes Percent Auto 42.8 % (18.3-44.2); Mean Corpuscular Volume 87.5 fl (80-100); Mean Platelet Volume 9.9 fl (7.4-10.4); Monocytes Absolute Auto 0.4 K/mm3 (0.1-0.6); Monocytes Percent Auto 4.9 % (2.6-8.5); Neutrophils Percent Auto 50.6 % (45.5-73.1); Platelet Count Result 242 k/mm3 (150-375); Red Blood Count 5.53 M/mm3 (4.6-6.20); Red Cell Distribution Width 13.7 % (11.5-14.5); White Blood Count 7.8 K/mm3 (4.5-10.0)
[2020-12-23 07:01] LABS: Alanine Aminotransferase 12 U/L (4-50); Albumin Level 3.2 g/dL (3.5-5.1); Alkaline Phosphatase 61 U/L (38-126); Anion Gap 5 mmol/L (8-16); Aspartate Amino Transferase 20 U/L (17-59); Bilirubin,Total 0.6 mg/dL (0.2-1.3); Blood Urea Nitrogen 15 mg/dL (9-20); Calcium 8.3 mg/dL (8.4-10.2); Carbon Dioxide 32 mmol/L (22-30); Chloride 98 mmol/L (98-107); Estimated CRCL calculation 130 ml/min; Estimated Glomerular Filt Rate > 60; Glucose 109 mg/dL (75-110); Magnesium 2.1 mg/dL (1.6-2.3); Potassium 4.4 mmol/L (3.4-5.0); Sodium 135 mmol/L (137-145)
[2020-12-23 08:00] VITALS: PULSE 97; RESP 18; O2SAT 93
--- NOTE | 2020-12-23 09:11 | PM.DS ---
DS: Admitting Diagnosis Admitting Diagnosis Admitting Diagnosis: pna DS: Discharge Diagnosis Discharge Diagnosis (1) CAP (community acquired pneumonia): Code(s): J18.9 - Pneumonia, unspecified organism Status: Acute Assessment and Plan: Symptoms consistent with pneumonia -sputum culture did not show any organisms and histoplasmosis antigen pending at discharge. Will monitor it until finalized. - patient received ceftriaxone and azithromycin during his stay and was sent home on Levaquin -pulmonology was consulted during the stay and is going to follow him outpatient -CT shows possible chronic infection, he will need a repeat CT in 3 months. This was ordered -HIV negative, IgG pending ( will follow-up with pulmonology with this) -influenza and COVID-19 less likely -spoke with Dr. guerrier who agrees with the current treatment at this time (2) Acute exacerbation of chronic obstructive airways disease: Code(s): J44.1 - Chronic obstructive pulmonary disease with (acute) exacerbation Status: Acute Assessment and Plan: resolved (3) Histoplasmosis: Code(s): B39.9 - Histoplasmosis, unspecified Status: Chronic Assessment and Plan: as above - histoplasmosis labs pending (4) Tobacco abuse: Code(s): Z72.0 - Tobacco use Status: Chronic Assessment and Plan: I educated the patient that he needs to quit smoking (5) Marijuana use: Code(s): F12.90 - Cannabis use, unspecified, uncomplicated Status: Chronic Assessment and Plan: Patient participates in legal marijuana consumption and purchases his marijuana at the dispensary (6) Sinus tachycardia: Code(s): R00.0 - Tachycardia, unspecified Status: Acute Assessment and Plan: resolved at discharge.EKG with sinus tachycardia likely related to chronic lung disease on top of pneumonia -BNP less than 300, CHF less likely -EKG reviewed with no significant abnormalities. Patient denies chest pain -PE less likely, wells criteria 1.5 points which is unlikely -TSH normal (7) Acute respiratory failure with hypoxia: Code(s): J96.01 - Acute respiratory failure with hypoxia Status: Acute Assessment and Plan: Resolved (8) Bacteremia: Code(s): R78.81 - Bacteremia Status: Acute Assessment and Plan: Both blood cultures are growing different types of bacteria which points to contamination - new blood cultures have no growth to date and will be monitored until finalized -infectious disease (Dr. Guerrier) was consulted and I talked to him by phone who agrees DS: Summary Hospital Course Hospital Course: the patient is a 45-year-old male with a history of histoplasmosis (in 2018&2019) who presented emergency room for complaints cough and shortness of breath. Vitals in the ER were temperature 36.9 degree C, pulse 124, respiratory rate 28, blood pressure 153/106, pulse ox 98 on room air. Initial white blood cell count 5.2. Chest CT showed multifocal lung disease likely chronic infection but a noncontrast CT was recommended in 3 months. It also showed severe emphysema and mediastinal and left hilar lymphadenopathy likely reactive. he also had intermittent episodes of sinus tachycardia.patient was admitted to the hospitalist service And started on ceftriaxone and azithromycin As well as breathing treatments. the patient improved with this therapy. Pulmonology and Infectious Disease was consulted due to his history. Neither of them thought he needed any treatment for histoplasmosis but workup for antigens and antibodies are pending. his blood cultures initially came back positive but appeared to be a contaminant. This delayed discharge as new blood cultures had to be drawn and were negative at discharge. The patient progressively improved with treatment and the day of discharge was ready to go. He says he does
--- NOTE | 2020-12-23 10:21 | PCRCNOTE ---
Window of time for administration has passed. See next scheduled administration.
[2020-12-24 06:13] LABS: Immunoglobulin G, Serum 1417 mg/dL (600-1640); Immunoglobulin G1 760 mg/dL (382-929); Immunoglobulin G2 462 mg/dL (241-700); Immunoglobulin G3 89 mg/dL (22-178); Immunoglobulin G4 27.2 mg/dL (4.0-86.0)
--- NOTE | 2020-12-25 10:07 | PC.NURSE ---
IgG is WNL
--- NOTE | 2021-01-02 10:22 | PC.NURSE ---
BLood cx are negative. Histoplasmosis urine is negative. BONITA Kemp aware.
== END 2020-12-23 10:40 | disposition home or self-care (01) | DRG 140 ==
LOC: ANHED 20:15 → ANH3MEDSUR 12-20 04:56
PROVIDERS: Emergency Medicine; Internal Medicine; Nurse Practitioner; Admitting Provider Family Medicine; Emergency Provider Family Medicine; Visit Provider Physician Assistant
DX: J43.9 Emphysema, unspecified (principal); J18.9 Pneumonia, unspecified organism; J96.01 Acute respiratory failure with hypoxia; B39.9 Histoplasmosis, unspecified; F17.210 Nicotine dependence, cigarettes, uncomplicated; F12.90 Cannabis use, unspecified, uncomplicated; R00.0 Tachycardia, unspecified
CPT/HCPCS: 36415; 36600; 71045; 71260; 80048; 80076; 80202; 80307; 82375; 82550; 82784; 82787; 82805; 82948; 83036; 83050; 83735; 83880; 84145; 84443; 85025; 86140; 86698; 86703; 87040; 87070; 87077; 87186; 87205; 87385; 93005; 93306; 94002; 94640; 96374; 99285; A9270; G0432; J0290; J0456; J0696; J1650; J1956; J2930; J3370; J7030; J7512; Q9967

== ENCOUNTER 2022-09-21 16:52 | Emergency (ER) | payer OTHER, SELFPAY ==
[2022-09-21] VITALS (9 sets, daily range): BP systolic 117–160; BP diastolic 69–137; PULSE 99–115; RESP 14–24; TEMP 37; O2SAT 97–100
--- NOTE | ~2022-09-21 | XR_ITS ---
XR chest 1V portable DATE: 09/21/2022 18:55 INDICATION: Dyspnea, shortness of breath TECHNIQUE: Portable upright AP chest on 09/1512/17/2022 at 1853 hours COMPARISON: 12/19/2020 CT chest 12/19/2020 portable AP chest FINDINGS: Chronic right apical scarring and volume loss with rightward shift of the heart mediastinum . Bilateral hyperinflation suggesting COPD. Normal heart size. No pleural effusion or pulmonary vascular congestion or pneumothorax. IMPRESSION: Chronic right upper lobe scarring and volume loss COPD No significant change since 12/20/2019 Reviewed, dictated and finalized at location A.
--- NOTE | 2022-09-21 18:09 | ECG_ITS ---
Measurements Intervals [place] Rate: 96 P: 72 HI: 144 QRS: 50 QRSD: 80 T: 68 QT: 358 QTc: 454 Interpretive Statements SINUS RHYTHM DELAYED PRECORDIAL R/S TRANSITION BORDERLINE ECG COMPARED TO ECG 12/19/2020 16:35:56 SINUS RHYTHM NOW PRESENT Electronically Signed On 09-21-2022 20:21:50 CDT by Sean Ornelas D.O.
--- NOTE | 2022-09-21 18:14 | ED.SOB ---
HPI - SOB/Dyspnea General Chief Complaint: Shortness of Breath/Dyspnea Stated Complaint: SOB Time Seen by Provider: 09/21/22 17:50 History of Present Illness HPI Narrative: 47-year-old male with a history of COPD, histoplasmosis, drug abuse reports via EMS for shortness of breath that started today. Patient states he smoked meth last night, went to the [place] lot around noon, fell asleep in his truck and was woken up by police around 2-3 o'clock. Patient reports the police put the patient in the back of the car when he began feeling really hot and short of breath. Patient states he felt like there is phlegm stuck in his throat and began panicking and reports not remembering the rest of the car ride. Patient reports he remembered coming to in the back of an ambulance and was told he was given narcan. He states EMS gave him a neb with improvement in his dyspnea. Currently, pt is reporting dyspnea that is baseline for him. He does endorse a productive cough today, which is also baseline. He does not wear O2 at home. Pt states he smokes cigarettes daily. Denies alcohol use, CP, fevers, headaches, back pain, abdominal pain, n/v/d, urinary complaints, focal numbness or weakness. Related Data Allergies Allergy/AdvReac Type Severity Reaction Status Date / Time No Known Allergies Allergy Verified 09/21/22 17:14 Review of Systems Review of Systems: CONSTITUTIONAL: Denies fever, chills EYES: Denies visual changes, redness, or discharge. ENT: Denies rhinorrhea, congestion, sore throat, or otalgia. CARDIOVASCULAR: Denies chest pain, palpitations, or edema. RESPIRATORY: See HPI GASTROINTESTINAL: Denies abdominal pain, nausea, vomiting, or diarrhea. GENITOURINARY: Denies dysuria or hematuria. SKIN: Denies rash or itching. MUSCULOSKELETAL: Denies back pain, joint pain, or myalgia. NEUROLOGIC: Denies headache, numbness, dizziness, or weakness. PSYCHIATRIC: Denies anxiety or depression. [facility] Past Medical History Medical History Histoplasmosis Marijuana use No active medical problems Tobacco abuse Surgical History Surgical History No pertinent past surgical history Family History Family History Unknown No problems noted. Social History Social History Social History: The patient lives with his significant other. He states he only uses marijuana does not use any other street drugs. However another relative states that he does use other street drugs and his drug screen is pending. The patient continues to smoke a pack a cigarettes a day. The patient says he either has 5or 6 kids. Smoking packs per day: 1 Smoking cigarettes per day: 20.0 Smoking status: Current every day smoker Tobacco type: cigarettes Alcohol intake: never Substance use: current Substance use type: marijuana Other substance usage details: occasional Gender identity (if verbalized by the patient): Male Spiritual care concerns: No Exam Narrative: GENERAL: Well-appearing, well-nourished, and in no acute distress. Patient resting comfortably in the exam bed. He is speaking in full sentences. HEAD: Normocephalic, atraumatic. EYES: Pinpoint pupils, otherwise equal round and reactive to light ENT: Nares clear, no rhinorrhea or epistaxis. Mucous membranes moist. Oropharynx without tonsillar hypertrophy exudate or other lesions. No tongue lesions or bite avila. NECK: Supple. No adenopathy or masses. CHEST: No respiratory distress. No wheezes rales or rhonchi. Decreased lung sounds throughout lung ghosh. HEART: Regular rate and rhythm. No murmur heard. Normal peripheral pulses. ABDOMEN: Soft, nontender, nondistended, normal active bowel sounds. EXTREMITIES: Normal range of motion. No edema. SKIN: Warm,
[2022-09-21] MEDS: IPRATROPIUM BR 0.02% INH SOLN 0.5 MG/2.5 ML VIAL 1 MG INHALATION (18:21)
[2022-09-21] MEDS: ALBUTEROL SULFATE NEB 2.5 MG/3 ML INH 10 MG INHALATION (18:21)
[2022-09-21] MEDS: predniSONE 20 MG TABLET 60 MG PO (18:23)
[2022-09-21] MEDS: SODIUM CHLORIDE 0.9% IV 1,000 ML 999 ML IV CONT (18:24)
[2022-09-21 19:41] LABS: Basophils Percent Auto 0.4 % (0.2-1.2); Eosinophils Percent Auto 0.1 % (0-4.4); Hematocrit 49.1 % (42.0-52.0); Hemoglobin 15.1 g/dL (14.0-18.0); Immature Granulocyte Absolute 0.02 K/mm3 (0.00-0.031); Immature Granulocyte Percent A 0.2 % (0-0.5); Lymphocytes Absolute Auto 1.24 K/mm3 (0.9-3.2); Lymphocytes Percent Auto 13.8 % (18.3-44.2); Mean Corpuscular HGB Conc 30.8 g/dl (32-36); Mean Corpuscular Hemoglobin 28.1 pg (26-34); Mean Corpuscular Volume 91.4 fl (80-100); Mean Platelet Volume 9.6 fl (7.4-10.4); Monocytes Absolute Auto 0.2 K/mm3 (0.1-0.6); Monocytes Percent Auto 1.8 % (2.6-8.5); Neutrophils Absolute Auto 7.5 K/mm3 (1.3-6.7); Neutrophils Percent Auto 83.7 % (45.5-73.1); Platelet Count Result 237 k/mm3 (150-375); Red Blood Count 5.37 M/mm3 (4.6-6.20); Red Cell Distribution Width 14.1 % (11.5-14.5)
[2022-09-21 19:48] LABS: Appearance Urine Cloudy (Clear); Bacteria Urine None Seen /hpf; Bilirubin Urine Negative (Negative); Blood Urine Negative (Negative); Color Urine Yellow (Yellow); Glucose Urine UA Negative (Negative); Ketones Urine Negative (Negative); Leukocyte Esterase Ur Negative LEU/UL (Negative); Nitrate Urine Negative (Negative); Protein Urine Negative (Negative); RBC Urine 0-2 /hpf (0-2); Specific Grav Ur 1.013 (1.001-1.035); Squamous Epithelial Cell Urine None seen /hpf (Few); Urobilinogen Urine 0.2 mg/dL (<2.0); WBC Urine 0-5 /hpf
[2022-09-21 19:49] LABS: Add Urine Microscopic? YES
[2022-09-21 19:54] LABS: D Dimer 0.37 ug/mL (<0.48)
[2022-09-21 20:03] LABS: Barbiturate Screen Urine Negative (Negative); Benzodiazepines Screen Urine Negative (Negative)
[2022-09-21 20:07] LABS: Cannabinoid Screen Urine Negative (Negative); Cocaine Screen Urine Negative (Negative); Methadone Screen Urine Negative (Negative); Opiate Screen Urine Negative (Negative); Phencyclidine Screen Urine Negative (Negative)
[2022-09-21 20:17] LABS: Potassium 3.8 mmol/L (3.4-5.0)
[2022-09-21 20:19] LABS: Alanine Aminotransferase 21 U/L (6-50); Albumin Level 3.6 g/dL (3.5-5.1); Alkaline Phosphatase 103 U/L (38-126); Anion Gap 4 mmol/L (8-16); Aspartate Amino Transferase 27 U/L (17-59); Bilirubin,Total 0.5 mg/dL (0.2-1.3); Blood Urea Nitrogen 9 mg/dL (9-20); Calcium 7.9 mg/dL (8.4-10.2); Carbon Dioxide 32 mmol/L (22-30); Chloride 102 mmol/L (98-107); Estimated CRCL calculation 114 ml/min; Estimated Glomerular Filt Rate > 60; Glucose 175 mg/dL (65-110); Sodium 138 mmol/L (137-145)
[2022-09-21 20:24] LABS: Amphetamine Screen Urine Positive (Negative)
[2022-09-21 20:29] LABS: NT Pro B Type Natriuretic Pept 150 pg/mL (19.9-100); Troponin I < 0.012 ng/mL (0.000-0.034)
[2022-09-21 22:14] LABS: Troponin I < 0.012 ng/mL (0.000-0.034)
== END 2022-09-21 22:36 | disposition home or self-care (01) ==
PROVIDERS: Emergency Provider Physician Assistant
DX: J44.1 Chronic obstructive pulmonary disease with (acute) exacerbation (principal); F15.10 Other stimulant abuse, uncomplicated; B39.9 Histoplasmosis, unspecified; F17.210 Nicotine dependence, cigarettes, uncomplicated; R94.31 Abnormal electrocardiogram [ECG] [EKG]
CPT/HCPCS: 36415; 71045; 80053; 80307; 81001; 83880; 84484; 85025; 85380; 93005; 94640; 96360; 99284; J7030; J7512

== ENCOUNTER 2023-06-26 09:04 | Outpatient (CLI) | payer OTHER, SELFPAY ==
--- NOTE | 2023-07-23 14:52 | P.PCNPFT_ITS ---
PFT Procedure Performed PFT Procedure Performed Spirometry with Pre/Post Bronchodilator Plethysmography (Lung Vol) Diffusing Cap (DLCO) Flow Vol Loop PFT Interpretation DOS: 06/26/2023 REQUESTING: Pankaj Anne MD REASON FOR TESTING: COPD PULMONARY FUNCTION TESTS Results are reliable and reproducible. Spirometry: Pre-bronchodilator FEV1 is 0.73 L, 17%, extremely low. Pre- bronchodilator FVC is 3.58 L, 67%, decreased. FEV1/ FVC ratio is 21%, extremely low consistent with airflow obstruction. After bronchodilator administration there is an 8% increase in the FEV1 and a 2% increase in the FVC. These are negligible changes. The post bronchodilator FEV1 is 0.79 L, 19% predicted and the forced vital capacity post bronchodilators 3.64 L, 68% predicted. The ratio is 22%. Lung volumes: Total lung capacity is 11.37 L, 148% predicted, consistent with severe hyperinflation. Residual volume is 7.63 L, 310% predicted, severe air trapping. RV/TLC is 67% consistent with air trapping. Increased airway resistance. Diffusion: DLCO is 10.5, 36% predicted. DLCO/VA is 2.17, 53% predicted. Flow volume loop: Severe coving of the expiratory limb IMPRESSION: Extremely severe obstructive ventilatory impairment without significant response to bronchodilator, severe hyperinflation, severe air trapping and severe diffusion impairment with minimal improvement when corrected for alveolar volume. Lack of response to bronchodilator should not preclude use if clinically indicated. No prior studies for comparison. Elvia Maravilla MD
== END 2023-06-26 09:05 | disposition home or self-care (01) ==
LOC: CHSCARD 09:07
PROVIDERS: PCP Internal Medicine; Visit Provider Internal Medicine
DX: J44.9 Chronic obstructive pulmonary disease, unspecified (principal)
CPT/HCPCS: 94060; 94726; 94729

== ENCOUNTER 2024-03-11 02:43 | Inpatient (IN) | payer OTHER, SELFPAY ==
[2024-03-11] VITALS (27 sets, daily range): BP systolic 109–150; BP diastolic 66–112; PULSE 90–138; RESP 14–25; TEMP 36.4–36.8; O2SAT 96–100; BMI 24.2
--- NOTE | ~2024-03-11 | CT_ITS ---
EXAMINATION:CT diagnostic chest w con DATE: 03/11/2024 09:20 INDICATION: Left lung nodule. TECHNIQUE: Computed tomography (CT) of the chest was performed with 75 mL Omnipaque 350 intravenous c ontrast. Automated exposure control and iterative reconstruction technique were employed. The dose-le ngth product (DLP) was 240.77 mGy-cm. COMPARISON: Chest CT 12/19/2020, chest single view 03/11/2024 FINDINGS: There is severe emphysema. There are chronic airspace opacities with volume loss and varico se bronchiectasis in right upper lobe and superior segment right lower lobe, consistent with atelecta sis and scarring. There are stable nodules in right lower lobe measuring up to 7 mm, likely benign. T here is a chronic nodule with central calcification in left upper lobe, likely benign. Calcified left hilar and mediastinal lymph nodes are consistent with old granulomatous disease. No pleural effusion . The heart is small, likely secondary to emphysema. No pericardial effusion. There are old healed ri ght rib fractures. There is mild chronic anterior wedging of multiple thoracic vertebral bodies. Ther e is mild thoracic spondylosis. IMPRESSION: 1. Benign nodules in the lungs. 2. Severe emphysema. 3. Chronic scarring involving right upper lobe and superior segment right lower lobe. Reviewed, dictated and finalized at location A.
--- NOTE | ~2024-03-11 | XR_ITS ---
EXAMINATION: XR chest 1V portable DATE: 03/13/2024 10:48 INDICATION: COPD exacerbation with worsening dyspnea TECHNIQUE: frontal view of the chest was obtained. COMPARISON: Chest radiograph and CT dated 03/11/2024 FINDINGS: Again seen is hyperexpansion of lungs with regions of increased lucency and architectural distortion most prominent in the left mid to lower lung zone and at the medial right lower lung zone consistent with severe emphysema better appreciated on prior CT. Stable appearance of volume loss with consolida tion and bronchiectatic changes in the right upper lobe. There is also linear discoid atelectasis/sca rring at the right lung base. Small left perihilar pulmonary nodule with central calcification on fish or CT consistent with old granulomatous disease. No new airspace opacities, pulmonary edema, pleural effusion or pneumothorax. The cardiomediastinal silhouette is normal. IMPRESSION: 1. Stable appearance of severe emphysema with chronic volume loss, scarring and bronchiectatic change at the right upper lobe. Reviewed, dictated and finalized at location A.
--- NOTE | ~2024-03-11 | XR_ITS ---
Portable chest x-ray Comparison: 09/21/2022 Clinical History: Dyspnea Findings: There is chronic right upper lobe scarring or post therapy change. Probable chronic blunti ng of right costophrenic angle versus small pleural effusion. COPD pattern present. Questionable subt le 1 cm left upper lobe pulmonary nodule. Possible additional nodule at the left lung apex measuring up to 2 cm. Cardiomediastinal silhouette is stable. Bones and soft tissues are unremarkable. Impression: Possible left lung pulmonary nodules measuring up to 2 cm, as above. Chest CT recommended to further evaluate. Chronic right apical scarring or posttreatment change. COPD. Reviewed, dictated and finalized at location . Impression: Possible left lung pulmonary nodules measuring up to 2 cm, as above. Chest CT r ecommended to further evaluate. Chronic right apical scarring or posttreatment change. COPD.
--- NOTE | 2024-03-11 02:49 | ECG_ITS ---
Test Date: 2024-03-11 02:55:30 Measurements Intervals [place] Rate: 134 P: 81 UT: 124 QRS: -36 QRSD: 90 T: 86 QT: 331 QTc: 495 Interpretive Statements SINUS TACHYCARDIA LEFT AXIS DEVIATION RIGHT ATRIAL ENLARGEMENT LEFT ATRIAL ENLARGEMENT DELAYED PRECORDIAL R/S TRANSITION CONSIDER INFERIOR INFARCT, AGE INDETERMINATE BORDERLINE ST-T WAVE ABNORMALITY- ANTEROLAT/HIGH LAT LEADS BASELINE ARTIFACT- I, II, III, AVR, AVL, AVF, V1-V2 ABNORMAL ECG No previous ECG available for comparison Electronically Signed On 03-11-2024 12:28:54 CDT by Sean Ornelas D.O.
[2024-03-11] MEDS: dexAMETHasone SOD PHOS INJ 10 MG/ML 1 ML VIAL IV PUSH (02:59)
[2024-03-11] MEDS: IPRATROPIUM 0.5 MG/ALBUTEROL SULFATE 2.5 MG AMPUL.NEB 3 ML INHALATION (03:00)
[2024-03-11 03:11] LABS: Alveolar/Arterial O2 Gradient 5.6 mmHg; Base Excess ABG -0.2 mEq/l (+/-2.0); Device NASAL CANNULA; Fractional Inspired Oxygen 24 %; HCO3 ABG 27.6 mEq/l (22.0-26.0); Modified Allen's Test Pass; Oxygen Content ABG 23.2 %vol (16.0-22.0); Oxygen Saturation ABG 96.8 % (95.0-100.0); Oxyhemoglobin 95.7 % THb (90.0-100.0); PCO2 ABG 56.6 mmHg (35.0-45.0); PO2 ABG 98.2 mmHg (80.0-100.0); PO2 FiO2 Ratio Arterial Blood 4.09 %; Site Drawn LEFT RADIAL; Total Hemoglobin 17.2 g/dL (12.0-18.0); pH ABG 7.306 (7.350-7.450)
[2024-03-11 03:16] LABS: Basophils Absolute Auto 0.1 K/mm3 (0.0-0.1); Basophils Percent Auto 0.9 % (0.2-1.2); Eosinophils Absolute Auto 0.2 K/mm3 (0-0.3); Eosinophils Percent Auto 1.6 % (0-4.4); Hemoglobin 17.8 g/dL (14.0-18.0); Immature Granulocyte Absolute 0.03 K/mm3 (0.00-0.031); Immature Granulocyte Percent A 0.3 % (0-0.5); Lymphocytes Absolute Auto 3.02 K/mm3 (0.9-3.2); Lymphocytes Percent Auto 25.7 % (18.3-44.2); Mean Corpuscular HGB Conc 32.4 g/dl (32-36); Mean Corpuscular Hemoglobin 28.3 pg (26-34); Mean Corpuscular Volume 87.6 fl (80-100); Mean Platelet Volume 9.7 fl (7.4-10.4); Monocytes Absolute Auto 0.9 K/mm3 (0.1-0.6); Monocytes Percent Auto 7.7 % (2.6-8.5); Neutrophils Absolute Auto 7.5 K/mm3 (1.3-6.7); Neutrophils Percent Auto 63.8 % (45.5-73.1); Platelet Count Result 257 k/mm3 (150-375); Red Blood Count 6.28 M/mm3 (4.6-6.20); Red Cell Distribution Width 14.5 % (11.5-14.5); White Blood Count 11.7 K/mm3 (4.5-10.0)
[2024-03-11 03:25] LABS: Lactic Acid Reflex 1.7 mmol/L (0.7-2.0)
[2024-03-11 03:26] LABS: Alanine Aminotransferase 20 U/L (6-50); Albumin Level 4.5 g/dL (3.5-5.1); Alkaline Phosphatase 115 U/L (38-126); Anion Gap 10 mmol/L (4-12); Aspartate Amino Transferase 30 U/L (17-59); Bilirubin,Total 1.1 mg/dL (0.2-1.3); Blood Urea Nitrogen 13 mg/dL (9-20); Carbon Dioxide 32 mmol/L (22-30); Chloride 96 mmol/L (98-107); Estimated CRCL calculation 83 ml/min; Estimated Glomerular Filt Rate > 60; Glucose 129 mg/dL (65-110); Potassium 4.4 mmol/L (3.4-5.0); Sodium 138 mmol/L (137-145)
[2024-03-11 03:27] LABS: INR 1.1; Partial Thromboplastin Time 27.2 Seconds (22.3-36.8); Prothrombin Time 14.3 Seconds (11.1-14.7)
[2024-03-11 03:32] LABS: Alanine Aminotransferase 21 U/L (6-50); Albumin Level 4.6 g/dL (3.5-5.1); Alkaline Phosphatase 117 U/L (38-126); Anion Gap 10 mmol/L (4-12); Aspartate Amino Transferase 30 U/L (17-59); Bilirubin,Total 1.1 mg/dL (0.2-1.3); Blood Urea Nitrogen 13 mg/dL (9-20); Carbon Dioxide 31 mmol/L (22-30); Chloride 96 mmol/L (98-107); Estimated CRCL calculation 83 ml/min; Estimated Glomerular Filt Rate > 60; Glucose 129 mg/dL (65-110); Lipase 48 U/L (23-300); Potassium 4.4 mmol/L (3.4-5.0); Sodium 137 mmol/L (137-145)
--- NOTE | 2024-03-11 03:35 | ED.GENADULT ---
HPI - General Adult General Chief complaint: Shortness of Breath/Dyspnea Stated complaint: DIFFICULTY IN BREATHING; RECENT COVID EXPOSURE Time Seen by Provider: 03/11/24 02:50 History of Present Illness HPI narrative: patient is a 49-year-old gentleman who presents emergency department with chief complaint of shortness of breath. The patient reports he has history of COPD and reports over the last 2 weeks he has had a cough patient states that he has been exposed to an individual that tested positive for COVID-19 a the patient called EMS tonight as his breathing has continued to worsen patient was significantly tachypneic and had labored breathing upon arrival Related Data Allergies Allergy/AdvReac Type Severity Reaction Status Date / Time No Known Allergies Allergy Verified 09/21/22 17:14 Review of Systems Review of Systems: A 10 system review of systems was completed on the patient and is negative except for what is stated in the HPI. Nursing and ancillary documentation was reviewed. PMFSH Past Medical History Medical History Histoplasmosis Marijuana use No active medical problems Tobacco abuse Surgical History Surgical History No pertinent past surgical history Family History Family History Unknown No problems noted. Social History Social History Social History: The patient lives with his significant other. He states he only uses marijuana does not use any other street drugs. However another relative states that he does use other street drugs and his drug screen is pending. The patient continues to smoke a pack a cigarettes a day. The patient says he either has 5or 6 kids. Smoking packs per day: 1 Smoking cigarettes per day: 20.0 Smoking status: Current every day smoker Tobacco type: cigarettes Alcohol intake: never Substance use: current Substance use type: marijuana Other substance usage details: occasional Gender identity (if verbalized by the patient): Male Spiritual care concerns: No Exam Narrative: GENERAL: Well-appearing, well-nourished, and in moderate acute respiratory distress. HEAD: Normocephalic, atraumatic. EYES: PERRLA and EOMI. ENT: Nares clear, no rhinorrhea or epistaxis. Mucous membranes moist. NECK: Supple. CHEST: scattered wheezes to auscultation. mild respiratory distress. HEART: Regular rate and rhythm. No murmur heard. Normal peripheral pulses. ABDOMEN: Soft, nontender, nondistended, normal active bowel sounds. EXTREMITIES: Normal range of motion. No edema. SKIN: Warm, dry, no rash. NEURO: No focal deficits. Alert and oriented x3. PSYCH: Normal mood and affect. Course Vital Signs Vital signs: Vital Signs Temperature 36.8 C 03/11/24 02:44 Pulse Rate 138 H 03/11/24 02:44 Respiratory Rate 24 H 03/11/24 02:44 Blood Pressure 150/112 H 03/11/24 02:44 Pulse Oximetry 99 03/11/24 02:44 Oxygen Delivery Room Air 03/11/24 02:44 Temperature 36.7 C 03/11/24 04:34 Pulse Rate 127 H 03/11/24 04:34 Respiratory Rate 03/11/24 04:34 Blood Pressure 114/76 03/11/24 04:34 Pulse Oximetry 100 03/11/24 04:34 Oxygen Delivery BiPAP 03/11/24 03:54 Medical Decision Making Vital Signs Vital Signs: Vital Signs Temperature 36.8 C 03/11/24 02:44 Pulse Rate 138 H 03/11/24 02:44 Respiratory Rate 24 H 03/11/24 02:44 Blood Pressure 150/112 H 03/11/24 02:44 Pulse Oximetry 99 03/11/24 02:44 Oxygen Delivery Room Air 03/11/24 02:44 Temperature 36.7 C 03/11/24 04:34 Pulse Rate 127 H 03/11/24 04:34 Respiratory Rate 03/11/24 04:34 Blood Pressure 114/76 03/11/24 04:34 Pulse Oximetry 100 03/11/24 04:34 Oxygen Delivery BiPAP
[2024-03-11 03:44] LABS: NT Pro B Type Natriuretic Pept 124 pg/mL (19.9-100); Troponin I < 0.012 ng/mL (0.000-0.034)
[2024-03-11 03:53] LABS: Procalcitonin 0.1 ng/mL
[2024-03-11 03:58] LABS: Add Urine Microscopic? NO; Appearance Urine Clear (Clear); Bilirubin Urine Negative (Negative); Blood Urine Negative (Negative); Color Urine Yellow (Yellow); Glucose Urine UA Negative (Negative); Ketones Urine 1+ mg/dL (Negative); Leukocyte Esterase Ur Negative LEU/UL (Negative); Nitrate Urine Negative (Negative); Protein Urine Negative (Negative); Specific Grav Ur 1.018 (1.001-1.035); pH Urine 5.5 (5.0-9.0)
[2024-03-11 04:36] LABS: Influenza A QL RT-PCR Negative (Negative); Influenza B QL RT-PCR Negative (Negative); RSV RNA, RT-PCR Negative (Negative); SARS-CoV-2 RNA PCR Negative (Negative)
--- NOTE | 2024-03-11 05:48 | ECG_ITS ---
Test Date: 2024-03-11 05:57:08 Measurements Intervals [place] Rate: 123 P: 82 [place]: 116 QRS: -55 QRSD: 73 T: 76 QT: 337 QTc: 482 Interpretive Statements SINUS TACHYCARDIA RIGHT ATRIAL ENLARGEMENT DELAYED PRECORDIAL R/S TRANSITION MINIMAL Q WAVES- INFERIOR LEADS ABNORMAL ECG No previous ECG available for comparison Electronically Signed On 03-11-2024 06:51:58 CDT by Sean Ornelas D.O.
[2024-03-11 06:28] LABS: Troponin I < 0.012 ng/mL (0.000-0.034)
--- NOTE | 2024-03-11 06:35 | ADMGEN ---
This patient, Hever Sandoval III, was admitted to IMU Room 212-01. Patient/family oriented to hospital policies and general routines including ID bracelet, bed and alarms, visiting hours, pain management, procedures, bathroom and other care routines, personal items, smoking policy, room service/diet, and visiting hours. Information on how to activate the Rapid Response Team has been discussed. Patient/Family are encouraged to report perceived risks to care and to ask questions if they do not understand what they are told or what they should do.
[2024-03-11] MEDS: methylPREDNISolone SOD SUCC 125 MG VIAL 60 MG IV PUSH ×3 (07:29→22:34)
--- NOTE | 2024-03-11 08:09 | PM.IMHP ---
H&P: HPI History of Present Illness Date/Time: 03/11/24 08:09 Chief Complaint: short of breath Narrative: 49 years old gentleman with history of COPD, tobacco dependence, brought to ED by EMS because of shortness breath. Patient has been cough in past 2 weeks, getting worse gradually. and shortness breath is getting worse yesterday, therefore patient called EMS and patient body ED for evaluation treatment. Patient has yellow greenish sputum and increased production of sputum in past 2 days. Patient states he received treatment of histoplasmosis 2018. Patient denies headache, photophobia, nausea vomiting diarrhea chest pain abdomen pain nausea vomiting diarrhea dysuria. upon arrival in the ED, patient was afebrile, patient has tachycardia tachypnea, and hypoxemia, lab showed leukocytosis 11,700 ABG showed decompensated respiratory acidosis, pCO2 56.6, patient is on 0.3, PO2 98. patient is placed on BiPAP. chest x-ray showed left pulmonary nodule about 2 cm and COPD pattern Review of Systems Review of Systems: ROS negative except above PMFSH Past Medical History Medical History (Updated 03/11/24 @ 08:20 by Yoly Troy MD) COPD exacerbation Histoplasmosis Marijuana use No active medical problems Tobacco abuse Surgical History Surgical History No pertinent past surgical history Family History Family History Unknown No problems noted. Social History Social History Social History: The patient lives with his significant other. He states he only uses marijuana does not use any other street drugs. However another relative states that he does use other street drugs and his drug screen is pending. The patient continues to smoke a pack a cigarettes a day. The patient says he either has 5or 6 kids. Smoking packs per day: 0.5 Smoking cigarettes per day: 10.0 Years smoked: 35 Smoking pack-years: 17.50 Smoking status: Current every day smoker Tobacco type: cigarettes Alcohol intake: never Substance use: never Substance use type: marijuana Other substance usage details: occasional Do You Feel Safe in your Home?: Yes Lack of Transportation: No Lack of Food: Never True Current Housing: I Have Housing Concerned About Future Housing: No Difficulty Paying Gas/Electric Bills: No Difficulty Paying for Meds: No Currently Unemployed: No Education: High School Diploma/GED Difficulty w/ Childcare or Family Care: No Gender identity (if verbalized by the patient): Male Spiritual care concerns: No Meds Home Medications and Allergies Home Medications Medication Instructions Recorded Confirmed Type albuterol sulfate 90 mcg/actuation 2 puff inhalation QID PRN 12/23/20 03/11/24 Rx aerosol inhaler shortness of breath or wheezing #6.7 grams umeclidinium 62.5 mcg-vilanterol 1 inh inhalation Q24H #60 ea 12/23/20 03/11/24 Rx 25 mcg/actuation powdr for inhalation (Anoro Ellipta) Allergies Allergy/AdvReac Type Severity Reaction Status Date / Time iohexol Allergy Mild Hives Verified 03/11/24 10:31 [From contrast - CT, X-RAY] levofloxacin [From Levaquin] Allergy Mild Hives Verified 03/11/24 10:31 Vital Signs Vital Signs - 24 hr 03/11/24 02:44 03/11/24 02:49 03/11/24 02:49 Temperature 98.2 F Pulse Rate 138 H 129 H Respiratory Rate 24 H Blood Pressure 150/112 H Pulse Oximetry 99 99 Oxygen Delivery Room Air Room Air 03/11/24 02:54 03/11/24 03:10 03/11/24 03:54 Temperature Pulse Rate 129 H Respiratory Rate 25 H Blood Pressure Pulse Oximetry 99 100 Oxygen Delivery Room Air BiPAP 03/11/24 03:54 03/11/24 04:34 03/11/24 03:25 Temperature 98.1 F Pulse Rate 127 H 132 H Respiratory Rate 19 20 Blood Pressure 114/76 Pul
[2024-03-11 08:28] LABS: Alveolar/Arterial O2 Gradient 30.1 mmHg; Base Excess ABG -0.5 mEq/l (+/-2.0); Fractional Inspired Oxygen 24 %; HCO3 ABG 25.4 mEq/l (22.0-26.0); Oxygen Content ABG 22.6 %vol (16.0-22.0); Oxygen Saturation ABG 96.2 % (95.0-100.0); Oxyhemoglobin 95.6 % THb (90.0-100.0); PCO2 ABG 45.8 mmHg (35.0-45.0); PO2 ABG 86.5 mmHg (80.0-100.0); Total Hemoglobin 16.8 g/dL (12.0-18.0); pH ABG 7.361 (7.350-7.450)
[2024-03-11 08:29] LABS: Site Drawn LEFT RADIAL
[2024-03-11 08:30] LABS: Device NON-INVASIVE VENT; Modified Allen's Test Pass
[2024-03-11 08:32] LABS: Non-Invasive Expiratory Pressure 8 CMH2O; Non-Invasive Inspiratory Pressure 14 CMH2O; Non-Invasive Vent Rate 20 /MIN
--- NOTE | 2024-03-11 08:47 | PC.NURSE ---
Updated Dr. Troy on pt's repeat ABG. New order to remove BiPAP and place pt on nasal cannula. Pt can go for CT without nurse present
[2024-03-11] MEDS: levoFLOXacin 750 MG/D5W 150 ML 750 MG/150 ML BAG 100 MG IVPB (08:58)
[2024-03-11] MEDS: diphenhydrAMINE HCl INJ 50 MG/ML VIAL IV PUSH (10:27)
[2024-03-11] MEDS: LEVALBUTEROL NEB 1.25 MG/3 ML INHALATION ×3 (10:38→19:17)
[2024-03-11] MEDS: UMECLIDINIUM/VILANTEROL 62.5-25 MCG ELLIPTA 1 PUFF INHALATION (10:38)
[2024-03-11] MEDS: IPRATROPIUM BR 0.02% INH SOLN 0.5 MG/2.5 ML VIAL INHALATION ×3 (10:38→19:17)
[2024-03-11 10:53] LABS: Troponin I < 0.012 ng/mL (0.000-0.034)
[2024-03-11] MEDS: cefTRIAXone 2 GM/NS 100 ML 2 GM/100 ML BAG IVPB (11:55)
[2024-03-11] MEDS: DOXYCYCLINE 100 MG/NS 100 ML 100 MG/100 ML BAG IVPB ×2 (11:56→22:34)
--- NOTE | 2024-03-11 16:45 | PC.NURSE ---
This patient, Hever Sandoval III, was transferred to [facility] room 314-02 on 03/11/24 at 1645. Personal belongings sent with patient. Report given to Crys ESCOBAR. Appropriate documentation sent with patient.
[2024-03-11] MEDS: PANTOPRAZOLE 40 MG TABLET PO (17:51)
[2024-03-12] VITALS (14 sets, daily range): BP systolic 103–116; BP diastolic 57–62; PULSE 87–104; RESP 16–18; TEMP 36.7–37.1; O2SAT 93–99
[2024-03-12] MEDS: IPRATROPIUM BR 0.02% INH SOLN 0.5 MG/2.5 ML VIAL INHALATION ×4 (02:03→21:41)
[2024-03-12] MEDS: LEVALBUTEROL NEB 1.25 MG/3 ML INHALATION ×4 (02:03→21:41)
[2024-03-12] MEDS: methylPREDNISolone SOD SUCC 125 MG VIAL 60 MG IV PUSH (05:04)
--- NOTE | 2024-03-12 08:08 | PM.IMPN ---
Progress Note: A&P Assessment and Plan (1) Acute on chronic respiratory failure with hypoxia and hypercapnia: Code(s): J96.21 - Acute and chronic respiratory failure with hypoxia; J96.22 - Acute and chronic respiratory failure with hypercapnia Status: Acute (2) COPD exacerbation: Code(s): J44.1 - Chronic obstructive pulmonary disease with (acute) exacerbation Status: Acute (3) Tobacco abuse: Code(s): Z72.0 - Tobacco use Status: Chronic (4) Lung nodule: Code(s): R91.1 - Solitary pulmonary nodule Status: Acute (5) Pneumonia: Qualifiers: Laterality: bilateral Lung location: upper lobe of lung Pneumonia type: due to unspecified organism Qualified Code(s): J18.9 - Pneumonia, unspecified organism Code(s): J18.9 - Pneumonia, unspecified organism Status: Acute (6) Acute bacterial bronchitis: Code(s): J20.8 - Acute bronchitis due to other specified organisms; B96.89 - Other specified bacterial agents as the cause of diseases classified elsewhere Status: Acute (7) Sepsis: Code(s): A41.9 - Sepsis, unspecified organism Status: Acute Plan COPD exacerbation, acute respiratory failure with hypoxemia and hypercapnia, possible atypical pneumonia and acute bacterial bronchitis patient has history of COPD,Tobacco dependence has progressive worsening productive cough in past 2 weeks, and worsen shortness of breath yesterday Flu and COVID negative ABG showed decompensated respiratory acidosis due to CO2 retention and hypoxemia Patient is placed on BiPAP Follow ABG Titrate BiPAP Setting of chronically Continue O2 therapy to keep pulse ox above 92 continue home medication Anoro Ellipta tele 1 puff daily start DuoNeb scheduled q.6 hour, albuterol nebulizer q.4 hours p.r.n. Start methylprednisolone 6 mg q.8 hours IV started Levaquin IV 750 mg once a day, switch doxy and ceftriaxone awake, patient developed right arm rash after receiving the contrast sepsis Patient has tachycardia tachypnea, leukocytosis 11,600 with left shift meeting criteria of sepsis Likely resulting from atypical pneumonia or acute better bronchitis antibiotics see above Follow-up blood culture left lung nodule chest x-ray showed left pulmonary nodule about 2 cm and COPD pattern patient is a tobacco dependence, risk of malignancy Follow-up CT of chest with contrast tobacco dependence Advised patient still smoking Provide nicotine patch Patient may stay more than 2 midnights in the hospital Subjective Date/time seen: 03/12/24 08:08 Review of Systems Review of Systems: ROS negative except above Exam Narrative: GENERAL: Pleasant, in no acute distress. Well-nourished. - EYES: EOMI. Anicteric. - HENT: Moist mucous membranes. - LUNGS: Distant breath sound bilaterally, scattered wheezing - CARDIOVASCULAR: Regular rate and rhythm. No murmur. No JVD. - ABDOMEN: Soft, non-tender and non-distended. No palpable masses. - EXTREMITIES: No edema. Peripheral pulses 2+. Non-tender. - NEUROLOGIC: No focal neurological deficits. CN II-XII grossly intact. - PSYCHIATRIC: Awake, Alert and oriented x 3. Appropriate mood and affect. - SKIN: No rashes or lesions. Warm. - LYMPH: No cervical lymphadenopathy. Objective Data Vital Signs Vital Signs: Vital Signs - 24 hr 03/11/24 10:00 03/11/24 10:16 03/11/24 10:42 Temperature Pulse Rate 119 H 124 H Respiratory Rate 18 Blood Pressure Pulse Oximetry 99 Oxygen Delivery Nasal Cannula Oxygen Flow Rate 3 03/11/24 09:00 03/11/24 11:07 03/11/24 12:36 Temperature 97.6 F Pulse Rate 112 H 114 H Respiratory Rate 18 24 H Blood Pressure 115/66 Pulse Oximetry 99 100 Oxygen Delivery Nasal Cannula Oxygen Flow Rate 3 03/11/24 14:21 03/11/24 14:58 03/11/24 16:00 Temperature 98.3 F Pulse Rate 109 H 121 H 115 H Respiratory Rate 20 20 16 Blood Pressure 109/7
--- NOTE | 2024-03-12 08:19 | PM.IMPN ---
Progress Note: A&P Assessment and Plan (1) Acute on chronic respiratory failure with hypoxia and hypercapnia: Code(s): J96.21 - Acute and chronic respiratory failure with hypoxia; J96.22 - Acute and chronic respiratory failure with hypercapnia Status: Acute (2) COPD exacerbation: Code(s): J44.1 - Chronic obstructive pulmonary disease with (acute) exacerbation Status: Acute (3) Tobacco abuse: Code(s): Z72.0 - Tobacco use Status: Chronic (4) Lung nodule: Code(s): R91.1 - Solitary pulmonary nodule Status: Acute (5) Pneumonia: Qualifiers: Laterality: bilateral Lung location: upper lobe of lung Pneumonia type: due to unspecified organism Qualified Code(s): J18.9 - Pneumonia, unspecified organism Code(s): J18.9 - Pneumonia, unspecified organism Status: Acute (6) Acute bacterial bronchitis: Code(s): J20.8 - Acute bronchitis due to other specified organisms; B96.89 - Other specified bacterial agents as the cause of diseases classified elsewhere Status: Acute (7) Sepsis: Code(s): A41.9 - Sepsis, unspecified organism Status: Acute Plan COPD exacerbation, acute respiratory failure with hypoxemia and hypercapnia, possible atypical pneumonia and acute bacterial bronchitis patient has history of COPD,Tobacco dependence has progressive worsening productive cough in past 2 weeks, and worsen shortness of breath yesterday Flu and COVID negative ABG showed decompensated respiratory acidosis due to CO2 retention and hypoxemia Patient is placed on BiPAP Follow ABG Titrate BiPAP Setting of chronically Continue O2 therapy to keep pulse ox above 92 continue home medication Anoro Ellipta tele 1 puff daily start DuoNeb scheduled q.6 hour, albuterol nebulizer q.4 hours p.r.n. Start methylprednisolone 6 mg q.8 hours IV started Levaquin IV 750 mg once a day, switch doxy and ceftriaxone awake, patient developed right arm rash after receiving the contrast continue current management, patient condition is improving significantly sepsis Patient has tachycardia tachypnea, leukocytosis 11,600 with left shift meeting criteria of sepsis Likely resulting from atypical pneumonia or acute better bronchitis antibiotics see above Follow-up blood culture, pending report left lung nodule chest x-ray showed left pulmonary nodule about 2 cm and COPD pattern patient is a tobacco dependence, risk of malignancy ordered CT of chest with contrast CT scan showed 1. Benign nodules in the lungs. 2. Severe emphysema. 3. Chronic scarring involving right upper lobe and superior segment right lower lobe. tobacco dependence Advised patient still smoking Provide nicotine patch if patient condition continues to improve, patient can be discharged tomorrow and follow-up with broadcasting equipment mechanic in the office Subjective Date/time seen: 03/12/24 08:19 Interval history: I saw examined patient today, patient feels dyspnea is improving, has cough with scant phlegm. Denies chest pain abdomen pain nausea vomiting. Exam Narrative: GENERAL: Pleasant, in no acute distress. Well-nourished. - EYES: EOMI. Anicteric. - HENT: Moist mucous membranes. - LUNGS: Distant breath sound bilaterally, scattered wheezing , recent is improving - CARDIOVASCULAR: Regular rate and rhythm. No murmur. No JVD. - ABDOMEN: Soft, non-tender and non-distended. No palpable masses. - EXTREMITIES: No edema. Peripheral pulses 2+. Non-tender. - NEUROLOGIC: No focal neurological deficits. CN II-XII grossly intact. - PSYCHIATRIC: Awake, Alert and oriented x 3. Appropriate mood and affect. - SKIN: No rashes or lesions. Warm. - LYMPH: No cervical lymphadenopathy. Objective Data Vital Signs Vital Signs: Vital Signs - 24 hr 03/11/24 10:00 03/11/24 10:16 03/11/24 10:42 Temperature Pulse Rate 119 H 124 H Respiratory Rate 18 Blood Pressure Pulse Oximetry 99 Oxy
[2024-03-12] MEDS: UMECLIDINIUM/VILANTEROL 62.5-25 MCG ELLIPTA 1 PUFF INHALATION (08:39)
[2024-03-12] MEDS: PANTOPRAZOLE 40 MG TABLET PO (08:39)
[2024-03-12 09:26] LABS: Hematocrit 47.4 % (42.0-52.0); Hemoglobin 15.2 g/dL (14.0-18.0); Mean Corpuscular HGB Conc 32.1 g/dl (32-36); Mean Corpuscular Hemoglobin 28.3 pg (26-34); Mean Corpuscular Volume 88.3 fl (80-100); Platelet Count Result 234 k/mm3 (150-375); Red Blood Count 5.37 M/mm3 (4.6-6.20); Red Cell Distribution Width 14.1 % (11.5-14.5); White Blood Count 18.2 K/mm3 (4.5-10.0)
[2024-03-12 09:45] LABS: Alanine Aminotransferase 15 U/L (6-50); Albumin Level 3.9 g/dL (3.5-5.1); Alkaline Phosphatase 88 U/L (38-126); Anion Gap 7 mmol/L (4-12); Aspartate Amino Transferase 22 U/L (17-59); Bilirubin,Total 0.4 mg/dL (0.2-1.3); Blood Urea Nitrogen 16 mg/dL (9-20); Calcium 8.6 mg/dL (8.4-10.2); Carbon Dioxide 33 mmol/L (22-30); Chloride 97 mmol/L (98-107); Estimated CRCL calculation 100 ml/min; Estimated Glomerular Filt Rate > 60; Glucose 144 mg/dL (65-110); Potassium 4.7 mmol/L (3.4-5.0); Sodium 137 mmol/L (137-145)
[2024-03-12] MEDS: cefTRIAXone 2 GM/NS 100 ML 2 GM/100 ML BAG IVPB (10:42)
[2024-03-12] MEDS: DOXYCYCLINE 100 MG/NS 100 ML 100 MG/100 ML BAG IVPB ×2 (10:42→23:42)
--- NOTE | 2024-03-12 11:23 | PM.CNPUL ---
Assessment and Plan Assessment and plan (1) COPD exacerbation: Code(s): J44.1 - Chronic obstructive pulmonary disease with (acute) exacerbation Status: Acute Assessment and Plan: This 49-year-old man with very severe COPD, FEV1 approximately 17% of predicted, presented with shortness of breath, coughing, and wheezing related to a COPD exacerbation. The patient appears to have improved on a regimen of supplemental oxygen, antibiotics, IV steroids, and short-acting bronchodilators. Currently, he is on just supplemental oxygen, with some improvement in his hypercapnic respiratory failure also noted on the last blood gases. Currently, he has no wheezing on physical exam. Plan: Continue with the current regimen of antibiotics, nebulized short-acting bronchodilators, and supplemental oxygen. Switched the patient to oral steroids starting in the morning. Consider the patient for DVT prophylaxis with subcutaneous enoxaparin. Repeat blood gases to assess the degree of hypercapnia. Will continue to follow the patient along with you. (2) Acute on chronic respiratory failure with hypoxia and hypercapnia: Code(s): J96.21 - Acute and chronic respiratory failure with hypoxia; J96.22 - Acute and chronic respiratory failure with hypercapnia Status: Acute (3) Tobacco abuse: Code(s): Z72.0 - Tobacco use Status: Chronic (4) History of histoplasmosis: Code(s): Z86.19 - Personal history of other infectious and parasitic diseases Status: Acute History of Present Illness History of Present Illness Consult date: 03/12/24 Chief complaint: Hypercapnic respiratory failure, COPD exacerbation Narrative: This 49-year-old man with a known history of very severe COPD presented with a few days' history of shortness of breath, wheezing, and cough. The patient was in his usual state of health until approximately 3 days prior to this admission when he started to experience headaches, shortness of breath, and wheezing. He has no fever, chills, hemoptysis, or chest pain. When evaluated in the emergency room, he was found to have acute on chronic hypercapnic respiratory failure and has been treated for a COPD exacerbation. The chest CT showed some benign nodules in the lungs, severe emphysema, and chronic scarring involving the right upper lobe and the superior segment of the right lower lobe. The patient has been on antibiotics, IV steroids, and short-acting bronchodilators with significant improvement. He was briefly treated with BiPAP support. Currently, he is on supplemental oxygen and is feeling 80% better. The patient has known very severe COPD and has been on maintenance bronchodilators with LABA/LAMA inhalers and short-acting bronchodilators. Pulmonary function testing in May of last year showed an FEV1 of 0.73 (17% predicted), FVC of 3.58 (67% predicted), and an FEV1/FVC ratio of 21%. He had a severely reduced lung diffusion capacity (36% predicted), along with air trapping and lung hyperinflation. The patient has been a smoker, 1 pack per day for 35 years. His past medical history is also significant for a previous history of histoplasmosis diagnosed in 2018, for which he received treatment for approximately 2 years. The patient has had at least one hospitalization every year for COPD exacerbation. He received the COVID vaccine once in 2021, usually gets the influenza vaccine every year, but has not had any RSV vaccination. Review of Systems Review of Systems: Patient reports no significant weight changes. He has no history of asthma or history of allergic rhinitis. He has occasional acid reflux symptoms but has not been on treatment. He has no nausea vomiting diarrhea constipation or abdominal pain. He has no urinary complaints. He has no joint pain. He has no skin rashes. The remainder of the 12 point system review is negative. [facility] Past Medical History Medical History (Updated 03/12/24 @ 11:30 by Nabil Krishnamurthy
[2024-03-12] MEDS: ACETAMINOPHEN 500 MG TABLET 1000 MG PO (21:52)
[2024-03-13] VITALS (11 sets, daily range): BP systolic 115–129; BP diastolic 54–70; PULSE 80–102; RESP 12–20; TEMP 36.1–36.9; O2SAT 95–100
[2024-03-13] MEDS: LEVALBUTEROL NEB 1.25 MG/3 ML INHALATION ×4 (03:08→19:27)
[2024-03-13] MEDS: IPRATROPIUM BR 0.02% INH SOLN 0.5 MG/2.5 ML VIAL INHALATION ×4 (03:10→19:27)
[2024-03-13] MEDS: UMECLIDINIUM/VILANTEROL 62.5-25 MCG ELLIPTA 1 PUFF INHALATION (07:52)
[2024-03-13] MEDS: PANTOPRAZOLE 40 MG TABLET PO (08:40)
[2024-03-13] MEDS: predniSONE 20 MG TABLET 40 MG PO (08:40)
--- NOTE | 2024-03-13 10:14 | PM.PNPUL ---
Progress Note: A&P Assessment and Plan (1) Acute on chronic respiratory failure with hypoxia and hypercapnia: Code(s): J96.21 - Acute and chronic respiratory failure with hypoxia; J96.22 - Acute and chronic respiratory failure with hypercapnia Status: Acute (2) COPD exacerbation: Code(s): J44.1 - Chronic obstructive pulmonary disease with (acute) exacerbation Status: Acute Assessment and Plan: This 49-year-old man with very severe COPD, FEV1 approximately 17% of predicted, presented with shortness of breath, coughing, and wheezing related to a COPD exacerbation. The patient appears to have improved on a regimen of supplemental oxygen, antibiotics, IV steroids, and short-acting bronchodilators. Currently, he is on just supplemental oxygen, with some improvement in his hypercapnic respiratory failure also noted on the last blood gases. Has not been using BiPAP support. On physical exam apart from a severe lung hyperinflation has minimal wheezing today. Plan: Continue with current regimen. Repeat blood gases to assess for possible chronic hypercapnia as he may be a candidate for home ventilatory support. Anticipate DC home soon. Consider DVT prophylaxis, out of bed to chair. (3) History of histoplasmosis: Code(s): Z86.19 - Personal history of other infectious and parasitic diseases Status: Acute Subjective Date/time seen: 03/13/24 10:14 Interval history: Patient stated that his breathing has improved. He has mild cough. Did not use BiPAP support last night. Currently on just supplemental oxygen Review of Systems Review of Systems: All systems reviewed & are unremarkable except as noted in HPI and below (HPI and below) Exam Narrative: GENERAL APPEARANCE: Well developed, well nourished, alert and cooperative, and appears to be in in mild respiratory distress while on supplemental oxygen SKIN: Inspection of the skin reveals no rashes, ulcerations or petechiae. HEENT: Sclerae anicteric and conjunctivae pink and moist. Extraocular movements were intact and pupils were equal, round, and reactive to light. The oral mucosa, hard and soft palate, tongue and posterior pharynx were normal. NECK: Supple. There was no thyroid enlargement, and no tenderness, or masses were felt. CHEST: Increased AP diameter, no kyphoscoliosis. Hyperinflated chest LUNGS: Distant breath sounds bilaterally, minimal wheezing CARDIAC: There was a regular rate and rhythm without any murmurs, gallops, rubs. ABDOMEN: Soft and nontender with normal bowel sounds. There was no organomegaly. LYMPH NODES: No lymphadenopathy was appreciated in the neck. EXTREMITIES: No cyanosis, clubbing or edema. NEUROLOGIC: Alert and oriented x 3. Normal affect. Objective Data Vital Signs Vital Signs: Vital Signs - 24 hr 03/12/24 13:22 03/12/24 13:40 03/12/24 14:00 Temperature 37.0 C Pulse Rate 96 100 104 H Respiratory Rate 18 18 16 Blood Pressure 116/61 Pulse Oximetry 99 Oxygen Delivery Oxygen Flow Rate Fraction of Inspired Oxygen 03/12/24 21:24 03/12/24 21:42 03/12/24 21:47 Temperature 37.1 C Pulse Rate 98 96 Respiratory Rate 16 18 Blood Pressure 114/62 Pulse Oximetry 98 94 Oxygen Delivery Nasal Cannula Oxygen Flow Rate 2 Fraction of Inspired Oxygen 03/12/24 20:00 03/13/24 03:10 03/13/24 06:00 Temperature 36.1 C L Pulse Rate 90 88 Respiratory Rate 18 18 Blood Pressure Pulse Oximetry 94 100 Oxygen Delivery Nasal Cannula Oxygen Flow Rate 2 Fraction of Inspired Oxygen 03/13/24 07:37 03/13/24 07:37 03/13/24 07:52 Temperature Pulse Rate 81 Respiratory Rate 20 Blood Pressure Pulse Oximetry 100 100 Oxygen Delivery Nasal Cannula Nasal Cannula Oxygen Flow Rate 2 1 Fraction of Inspired Oxygen 03/13/24 07:52 Temperature Pulse Rate 80 Respiratory Rate 20 Blood Pressure Pulse Oximetry Oxygen Delivery Oxygen Flow Rate Fraction of
[2024-03-13 10:28] LABS: Alveolar/Arterial O2 Gradient 16.4 mmHg; Base Excess ABG 2.4 mEq/l (+/-2.0); Fractional Inspired Oxygen 24 %; HCO3 ABG 28.8 mEq/l (22.0-26.0); Oxygen Saturation ABG 96.8 % (95.0-100.0); Oxyhemoglobin 96.6 % THb (90.0-100.0); PCO2 ABG 51.7 mmHg (35.0-45.0); PO2 ABG 93.2 mmHg (80.0-100.0); PO2 FiO2 Ratio Arterial Blood 3.88 %; Total Hemoglobin 13.9 g/dL (12.0-18.0); pH ABG 7.364 (7.350-7.450)
[2024-03-13 10:29] LABS: Device NASAL CANNULA; Modified Allen's Test Pass; Site Drawn RIGHT RADIAL
[2024-03-13] MEDS: cefTRIAXone 2 GM/NS 100 ML 2 GM/100 ML BAG IVPB (12:01)
[2024-03-13] MEDS: DOXYCYCLINE 100 MG/NS 100 ML 100 MG/100 ML BAG IVPB ×2 (12:30→22:53)
--- NOTE | 2024-03-13 13:49 | PM.IMPN ---
Progress Note: A&P Assessment and Plan (1) Acute on chronic respiratory failure with hypoxia and hypercapnia: Code(s): J96.21 - Acute and chronic respiratory failure with hypoxia; J96.22 - Acute and chronic respiratory failure with hypercapnia Status: Acute (2) COPD exacerbation: Code(s): J44.1 - Chronic obstructive pulmonary disease with (acute) exacerbation Status: Acute (3) Tobacco abuse: Code(s): Z72.0 - Tobacco use Status: Chronic (4) Lung nodule: Code(s): R91.1 - Solitary pulmonary nodule Status: Acute (5) Pneumonia: Qualifiers: Laterality: bilateral Lung location: upper lobe of lung Pneumonia type: due to unspecified organism Qualified Code(s): J18.9 - Pneumonia, unspecified organism Code(s): J18.9 - Pneumonia, unspecified organism Status: Acute (6) Acute bacterial bronchitis: Code(s): J20.8 - Acute bronchitis due to other specified organisms; B96.89 - Other specified bacterial agents as the cause of diseases classified elsewhere Status: Acute (7) Sepsis: Code(s): A41.9 - Sepsis, unspecified organism Status: Acute Plan COPD exacerbation, acute respiratory failure with hypoxemia and hypercapnia, possible atypical pneumonia and acute bacterial bronchitis patient has history of COPD,Tobacco dependence has progressive worsening productive cough in past 2 weeks, and worsen shortness of breath yesterday Flu and COVID negative ABG showed decompensated respiratory acidosis due to CO2 retention and hypoxemia Patient is placed on BiPAP Follow ABG Titrate BiPAP Setting of chronically Continue O2 therapy to keep pulse ox above 92 continue home medication Anoro Ellipta tele 1 puff daily start DuoNeb scheduled q.6 hour, albuterol nebulizer q.4 hours p.r.n. Start methylprednisolone 6 mg q.8 hours IV started Levaquin IV 750 mg once a day, switch doxy and ceftriaxone awake, patient developed right arm rash after receiving the contrast continue current management, patient condition is improving significantly sepsis Patient has tachycardia tachypnea, leukocytosis 11,600 with left shift meeting criteria of sepsis Likely resulting from atypical pneumonia or acute better bronchitis antibiotics see above Follow-up blood culture, pending report left lung nodule chest x-ray showed left pulmonary nodule about 2 cm and COPD pattern patient is a tobacco dependence, risk of malignancy ordered CT of chest with contrast CT scan showed 1. Benign nodules in the lungs. 2. Severe emphysema. 3. Chronic scarring involving right upper lobe and superior segment right lower lobe. tobacco dependence Advised patient still smoking Provide nicotine patch if patient condition continues to improve, patient can be discharged tomorrow and follow-up with store operations associate in the office Subjective Date/time seen: 03/13/24 13:49 Interval history: Patient is doing well without any shortness of breath cough or fever. Patient WBC has been increased to 18.2 yesterday and we believe it is due to the steroid. His Solu-Medrol has been discontinued and started on prednisone. We will repeat the blood gases to assess the possible chronic hypercapnia for full ventilatory support as per pulmonology recommendation. Patient need outpatient follow-up with a store operations associate and might qualify for lung transplantation. Exam Narrative: GENERAL: Pleasant, in no acute distress. Well-nourished. - EYES: EOMI. Anicteric. - HENT: Moist mucous membranes. - LUNGS: Distant breath sound bilaterally, scattered wheezing , recent is improving - CARDIOVASCULAR: Regular rate and rhythm. No murmur. No JVD. - ABDOMEN: Soft, non-tender and non-distended. No palpable masses. - EXTREMITIES: No edema. Peripheral pulses 2+. Non-tender. - NEUROLOGIC: No focal neurological deficits. CN II-XII grossly intact. - PSYCHIATRIC: Awake, Alert and oriented x 3. Approp
[2024-03-13] MEDS: ACETAMINOPHEN 500 MG TABLET 1000 MG PO (22:54)
[2024-03-14] VITALS (10 sets, daily range): BP systolic 109; BP diastolic 69; PULSE 87–102; RESP 16–18; TEMP 36.9; O2SAT 85–99
[2024-03-14] MEDS: IPRATROPIUM BR 0.02% INH SOLN 0.5 MG/2.5 ML VIAL INHALATION ×2 (02:29→08:01)
[2024-03-14] MEDS: LEVALBUTEROL NEB 1.25 MG/3 ML INHALATION ×2 (02:29→08:01)
[2024-03-14 06:22] LABS: Alveolar/Arterial O2 Gradient 11.4 mmHg; Base Excess ABG 4.7 mEq/l (+/-2.0); Fractional Inspired Oxygen 21 %; HCO3 ABG 30.5 mEq/l (22.0-26.0); Oxygen Content ABG 17.5 %vol (16.0-22.0); Oxygen Saturation ABG 95.5 % (95.0-100.0); PCO2 ABG 50.1 mmHg (35.0-45.0); PO2 ABG 78.3 mmHg (80.0-100.0); PO2 FiO2 Ratio Arterial Blood 3.73 %; Total Hemoglobin 13.1 g/dL (12.0-18.0); pH ABG 7.402 (7.350-7.450)
[2024-03-14 06:23] LABS: Device ROOM AIR; Modified Allen's Test Pass; Site Drawn RIGHT RADIAL
[2024-03-14 06:43] LABS: Hematocrit 39.9 % (42.0-52.0); Hemoglobin 12.6 g/dL (14.0-18.0); Mean Corpuscular HGB Conc 31.6 g/dl (32-36); Mean Corpuscular Hemoglobin 28.1 pg (26-34); Mean Corpuscular Volume 89.1 fl (80-100); Mean Platelet Volume 9.2 fl (7.4-10.4); Platelet Count Result 175 k/mm3 (150-375); Red Blood Count 4.48 M/mm3 (4.6-6.20); Red Cell Distribution Width 14.7 % (11.5-14.5); White Blood Count 11.5 K/mm3 (4.5-10.0)
[2024-03-14 06:54] LABS: Alanine Aminotransferase 14 U/L (6-50); Albumin Level 2.9 g/dL (3.5-5.1); Alkaline Phosphatase 58 U/L (38-126); Anion Gap 3 mmol/L (4-12); Aspartate Amino Transferase 18 U/L (17-59); Bilirubin,Total 0.1 mg/dL (0.2-1.3); Blood Urea Nitrogen 11 mg/dL (9-20); Calcium 7.8 mg/dL (8.4-10.2); Carbon Dioxide 33 mmol/L (22-30); Chloride 101 mmol/L (98-107); Estimated CRCL calculation 146 ml/min; Estimated Glomerular Filt Rate > 60; Glucose 79 mg/dL (65-110); Potassium 3.7 mmol/L (3.4-5.0); Sodium 137 mmol/L (137-145)
--- NOTE | 2024-03-14 07:35 | PM.IMPN ---
Subjective Date/time seen: 03/14/24 07:35 Objective Data Vital Signs Vital Signs: Vital Signs - 24 hr 03/13/24 07:37 03/13/24 07:37 03/13/24 07:52 Temperature Pulse Rate 81 Respiratory Rate 20 Blood Pressure Pulse Oximetry 100 100 Oxygen Delivery Nasal Cannula Nasal Cannula Oxygen Flow Rate 2 1 Fraction of Inspired Oxygen 28 03/13/24 07:52 03/13/24 08:00 03/13/24 13:38 Temperature Pulse Rate 80 Respiratory Rate 20 Blood Pressure Pulse Oximetry 96 Oxygen Delivery Room Air Nasal Cannula Oxygen Flow Rate 1 Fraction of Inspired Oxygen 03/13/24 13:38 03/13/24 13:38 03/13/24 13:53 Temperature 98.5 F Pulse Rate 96 102 H 100 Respiratory Rate 18 20 18 Blood Pressure 115/54 L Pulse Oximetry 98 Oxygen Delivery Oxygen Flow Rate Fraction of Inspired Oxygen 03/13/24 14:10 03/13/24 20:00 03/13/24 21:45 Temperature 98.1 F Pulse Rate 89 Respiratory Rate 12 Blood Pressure 129/70 Pulse Oximetry 95 95 97 Oxygen Delivery Room Air Nasal Cannula Oxygen Flow Rate 2 Fraction of Inspired Oxygen 03/13/24 19:27 03/13/24 19:27 03/13/24 19:42 Temperature Pulse Rate 98 101 H Respiratory Rate 18 18 Blood Pressure Pulse Oximetry 95 Oxygen Delivery Room Air Oxygen Flow Rate Fraction of Inspired Oxygen 03/14/24 02:29 03/14/24 02:44 03/14/24 06:00 Temperature 98.4 F Pulse Rate 90 93 92 Respiratory Rate 18 18 16 Blood Pressure 109/69 Pulse Oximetry 99 Oxygen Delivery Oxygen Flow Rate Fraction of Inspired Oxygen Intake/Output Intake/Output: Intake & Output 03/11/24 03/12/24 03/13/24 03/14/24 23:59 23:59 23:59 23:59 Intake Total 1070.5 2075 2657.6 150 Balance 1070.5 2075 2657.6 150 Meds/Results Medications: Active Medications Generic Name Dose Route Start Last Admin Trade Name Freq PRN Reason Stop Dose Admin Acetaminophen 1,000 mg 03/12/24 21:42 03/13/24 22:54 Acetaminophen 500 Mg Tablet PO 1,000 mg Q6H PRN Administration Mild Pain (1-3) or Fever Doxycycline Hyclate 100 mg in 100 mls @ 100 mls/hr 03/11/24 11:00 03/14/24 00:48 Vibramycin 100 Mg/Ns 100 Ml IVPB Infused Q12H JOSE ROBERTO Infusion Ceftriaxone Sodium 2 gm in 100 mls @ 200 mls/hr 03/11/24 11:00 03/13/24 12:01 Rocephin 2 Gm/Ns 100 Ml IVPB 200 mls/hr Q24H JOSE ROBERTO Administration Ipratropium Mchenry 0.5 mg 03/11/24 10:27 03/14/24 02:29 Ipratropium Br 0.02% Inh Soln 0.5 Mg/2.5 Ml Vial INHALATION 0.5 mg Q6HRT JOSE ROBERTO Administration Levalbuterol HCl 1.25 mg 03/11/24 10:26 03/14/24 02:29 Levalbuterol Neb 1.25 Mg/3 Ml INHALATION 1.25 mg Q6HRT JOSE ROBERTO Administration Nicotine 1 patch 03/11/24 09:00 03/13/24 08:41 Nicotine (*Vidhya) 21 Mg Patch TRANSDERM Not Given DAILY JOSE ROBERTO Pantoprazole Sodium 40 mg 03/11/24 16:50 03/13/24 08:40 Pantoprazole 40 Mg Tablet PO 40 mg QAM JOSE ROBERTO Administration Prednisone 40 mg 03/13/24 08:00 03/13/24 08:40 Prednisone 20 Mg Tablet PO 40 mg DAILY@0800 JOSE ROBERTO Administration Umeclidinium/Vilanterol 1 puff 03/11/24 09:00 03/13/24 07:52 Umeclidinium/Vilanterol 62.5-25 Mcg Ellipta INHALATION 1 puff DAILYRT JOSE ROBERTO Administration Radiology Results: ITS Impressions Chest CT 03/11/24 09:29 IMPRESSION: 1. Benign nodules in the lungs. 2. Severe emphysema. 3. Chronic scarring involving right upper lobe and superior segment right lower lobe. Chest X-Ray 03/13/24 11:53 IMPRESSION: 1. Stable appearance of severe emphysema with chronic volume loss, scarring and bronchiectatic change at the right upper lobe. Labs Labs: Laboratory Results - last 24 hr 03/13/24 03/14/24 03/14/24 10:23 06:15 06:36 WBC RBC Hgb Hct MCV MCH MCHC RDW Plt Count MPV Puncture Site Right radial Right radial ABG pH 7.364 7.402 ABG pCO2 51.7 H 50.1 H ABG pO2 93.2 78.3 L ABG PO2/FiO2 Ratio 3.88 3
[2024-03-14] MEDS: UMECLIDINIUM/VILANTEROL 62.5-25 MCG ELLIPTA 1 PUFF INHALATION (08:05)
[2024-03-14] MEDS: predniSONE 20 MG TABLET 40 MG PO (08:12)
[2024-03-14] MEDS: PANTOPRAZOLE 40 MG TABLET PO (08:13)
[2024-03-14] MEDS: DOXYCYCLINE HYCLATE 100 MG TABLET PO (08:13)
--- NOTE | 2024-03-14 09:46 | HOMEO2EVAL ---
Evaluation was performed at [facility] Home Oxygen Evaluation RC: Home Oxygen (O2) Evaluation Start: 03/14/24 07:45 Freq: ONCE Status: Active Protocol: RPE Activity Type Activity Date Activity User E-sign Co-sign Detail Recorded Client Recorded Date Recorded By Document 03/14/24 09:15 DJO [email or web address] 03/14/24 09:46 DJO Document 03/14/24 09:20 [email or web address] [email or web address] 03/14/24 09:46 DJO Document 03/14/24 09:25 [email or web address] [email or web address] 03/14/24 09:46 DJO Document 03/14/24 09:30 [email or web address] [email or web address] 03/14/24 09:46 DJO Document 03/14/24 09:45 [email or web address] [email or web address] 03/14/24 09:46 DJO 03/14/24 03/14/24 03/14/24 09:15 09:20 09:25 Home O2 Evaluation [Oxygen] -Test Phase Resting Exercise Exercise -Oxygen Delivery Room Air Room Air Nasal Cannula -Oxygen Flow Rate (L/min) 1 [Pulse Oximetry] -Pulse Oximetry (90-100 %) 95 85 L 87 L [Pulse Rate] -Pulse Rate (60-100 beats/min) 92 102 H 102 H [Evaluation] -Activity Tolerance [Exercise] -Ambulation Distance (feet) -Ambulation Distance (meters) [Charges] -Evaluation Charges O2 Evaluation by Pulmonary 03/14/24 03/14/24 09:30 09:45 Home O2 Evaluation [Oxygen] -Test Phase Exercise Resting -Oxygen Delivery Nasal Cannula Room Air -Oxygen Flow Rate (L/min) 2 [Pulse Oximetry] -Pulse Oximetry (90-100 %) 90 94 [Pulse Rate] -Pulse Rate (60-100 beats/min) 102 H 94 [Evaluation] -Activity Tolerance Good [Exercise] -Ambulation Distance (feet) 500 -Ambulation Distance (meters) 152.39 [Charges] -Evaluation Charges
--- NOTE | 2024-03-14 09:54 | PM.DS ---
DS: Admitting Diagnosis Discharge Date 03/14/2024 Admitting Diagnosis Acute exacerbation of chronic obstructive airways disease, Acute hypercapnic respiratory failure DS: Discharge Diagnosis Discharge Diagnosis (1) Acute on chronic respiratory failure with hypoxia and hypercapnia: Code(s): J96.21 - Acute and chronic respiratory failure with hypoxia; J96.22 - Acute and chronic respiratory failure with hypercapnia Status: Acute (2) COPD exacerbation: Code(s): J44.1 - Chronic obstructive pulmonary disease with (acute) exacerbation Status: Acute (3) Tobacco abuse: Code(s): Z72.0 - Tobacco use Status: Chronic (4) Lung nodule: Code(s): R91.1 - Solitary pulmonary nodule Status: Acute (5) Pneumonia: Qualifiers: Laterality: bilateral Lung location: upper lobe of lung Pneumonia type: due to unspecified organism Qualified Code(s): J18.9 - Pneumonia, unspecified organism Code(s): J18.9 - Pneumonia, unspecified organism Status: Acute (6) Acute bacterial bronchitis: Code(s): J20.8 - Acute bronchitis due to other specified organisms; B96.89 - Other specified bacterial agents as the cause of diseases classified elsewhere Status: Acute (7) Sepsis: Code(s): A41.9 - Sepsis, unspecified organism Status: Acute Plan COPD exacerbation, acute respiratory failure with hypoxemia and hypercapnia, possible atypical pneumonia and acute bacterial bronchitis patient has history of COPD,Tobacco dependence has progressive worsening productive cough in past 2 weeks, and worsen shortness of breath yesterday Flu and COVID negative ABG showed decompensated respiratory acidosis due to CO2 retention and hypoxemia Patient is placed on BiPAP Follow ABG Titrate BiPAP Setting of chronically Continue O2 therapy to keep pulse ox above 92 continue home medication Anoro Ellipta tele 1 puff daily start DuoNeb scheduled q.6 hour, albuterol nebulizer q.4 hours p.r.n. Start methylprednisolone 6 mg q.8 hours IV started Levaquin IV 750 mg once a day, switch doxy and ceftriaxone awake, patient developed right arm rash after receiving the contrast continue current management, patient condition is improving significantly sepsis Patient has tachycardia tachypnea, leukocytosis 11,600 with left shift meeting criteria of sepsis Likely resulting from atypical pneumonia or acute better bronchitis antibiotics see above Follow-up blood culture, pending report left lung nodule chest x-ray showed left pulmonary nodule about 2 cm and COPD pattern patient is a tobacco dependence, risk of malignancy ordered CT of chest with contrast CT scan showed 1. Benign nodules in the lungs. 2. Severe emphysema. 3. Chronic scarring involving right upper lobe and superior segment right lower lobe. tobacco dependence Advised patient still smoking Provide nicotine patch if patient condition continues to improve, patient can be discharged tomorrow and follow-up with computer aided design drafter in the office DS: Summary Hospital Course Hospital Course: 49 years old gentleman with history of COPD, tobacco dependence, brought to ED by EMS because of shortness breath. Patient has been cough in past 2 weeks, getting worse gradually. and shortness breath is getting worse yesterday, therefore patient called EMS and patient body ED for evaluation treatment. Patient has yellow greenish sputum and increased production of sputum in past 2 days. Patient states he received treatment of histoplasmosis 2018. Patient denies headache, photophobia, nausea vomiting diarrhea chest pain abdomen pain nausea vomiting diarrhea dysuria. upon arrival in the ED, patient was afebrile, patient has tachycardia tachypnea, and hypoxemia, lab showed leukocytosis 11,700 ABG showed decompensated respiratory acidosis, pCO2 56.6, patient is on 0.3, PO2 98. patient is placed on BiPAP. chest x-ray showed left p
--- NOTE | 2024-03-14 11:03 | PM.PNPUL ---
Progress Note: A&P Assessment and Plan (1) COPD exacerbation: Code(s): J44.1 - Chronic obstructive pulmonary disease with (acute) exacerbation Status: Acute Assessment and Plan: This 49-year-old man with very severe COPD, FEV1 approximately 17% of predicted, presented with shortness of breath, coughing, and wheezing related to a COPD exacerbation. The patient appears to have improved on a regimen of supplemental oxygen, antibiotics, IV steroids, and short-acting bronchodilators. Currently, he is on just supplemental oxygen, with some improvement in his hypercapnic respiratory failure also noted on the last blood gases. Has not been using BiPAP support. On physical exam apart from a severe lung hyperinflation has minimal wheezing today. 03/13/24: Plan: Continue with current regimen. Repeat blood gases to assess for possible chronic hypercapnia as he may be a candidate for home ventilatory support. Anticipate DC home soon. Consider DVT prophylaxis, out of bed to chair. 03/14/24: Overall the patient tells me he is back to normal. He denies cough and phlegm production. Patient states he has wheezing since 2018 and today he does have wheezing on exam. White blood cell count 11.5, creatinine 0.6. Currently is on room air with saturations 98%. ABG is 6:15 this morning on room air 7.40/50/78. patient with PaCO2 of 50. This will not qualify him for home noninvasive ventilation at night. From a pulmonary perspective patient is ready to be discharged on these pulmonary medications: prednisone 40 mg p.o. q.day x1 day Trelegy 100-60 2.5-25 at 1 puff q.day Albuterol rescue 2 puffs q.4 hours p.r.n. shortness of breath or wheezing Doxycycline 100 mg p.o. b.i.d. x3 days Oxygen none at rest and 2 L with activity. Follow-up in the Pulmonary [facility] in 4 weeks. I gave him our business card and informed our resident care provider. Discussed with Dr. Tompkins, will sign off. Call with questions. (2) History of histoplasmosis: Code(s): Z86.19 - Personal history of other infectious and parasitic diseases Status: Acute Assessment and Plan: By patient's account he has a history of histoplasmosis 2017 and finished 1 year of itraconazole given through his Doctor at [facility]. Subjective Date/time seen: 03/14/24 11:03 Interval history: 03/13/24: Patient stated that his breathing has improved. He has mild cough. Did not use BiPAP support last night. Currently on just supplemental oxygen 03/14/24: Overall the patient tells me he is back to normal. He denies cough and phlegm production. Patient states he has wheezing since 2018 and today he does have wheezing on exam. White blood cell count 11.5, creatinine 0.6. Currently is on room air with saturations 98%. ABG is 615 this morning on room air 7.. Data: Home O2 assessment. Rest room air saturation 95%. Exercise room air saturation 85%. Exercise nasal cannula 1 L saturations 87%. Exercise nasal cannula 2 L saturation 90%. Patient requires no oxygen at rest and 2 with activity. Review of Systems Constitutional: Constitutional: Reports no additional constitutional complaints Eyes: Eyes: Reports no additional eye complaints ENT: Reports system reviewed and no additional complaints, except as documented Cardiovascular: Cardiovascular: Reports no additional cardiovascular complaints Respiratory: Respiratory: Reports no additional respiratory complaints Gastrointestinal: Gastrointestinal: Reports no additional gastrointestinal complaints Musculoskeletal: Musculoskeletal: Reports no additional musculoskeletal complaints Neurologic: Reports system reviewed and no additional complaints, except as documented Psychiatric: Psychiatric: Reports no additional psychiatric complaints Endocrine: Endocrine: Reports no additional endocrine complaints Hematologic/Lymphatic: Hematologic/Lymphatic: Reports no additional hematologic/lymphatic com
[2024-03-14] MEDS: INFLUENZA TRIVALENT VACCINE 45 MCG/0.5 ML SYRINGE IM (11:17)
== END 2024-03-14 11:20 | disposition home or self-care (01) | DRG 720 ==
LOC: ANHED 05:07 → ANHIMU 05:59 → ANH3MEDSUR 16:53
PROVIDERS: Hospitalist; Internal Medicine Pulmonary Disease; Admitting Provider Internal Medicine; Emergency Provider Emergency Medicine; PCP Internal Medicine; Visit Provider General Practice
DX: A41.9 Sepsis, unspecified organism (principal); J44.1 Chronic obstructive pulmonary disease with (acute) exacerbation; J96.21 Acute and chronic respiratory failure with hypoxia; J96.22 Acute and chronic respiratory failure with hypercapnia; J18.9 Pneumonia, unspecified organism; Z20.822 Contact with and (suspected) exposure to COVID-19; R91.1 Solitary pulmonary nodule; Z23 Encounter for immunization; J44.0 Chronic obstructive pulmonary disease with (acute) lower respiratory infection; J20.8 Acute bronchitis due to other specified organisms; F17.210 Nicotine dependence, cigarettes, uncomplicated; Z86.19 Personal history of other infectious and parasitic diseases
CPT/HCPCS: 36415; 36600; 71045; 71260; 80053; 81003; 82805; 82810; 83605; 83690; 83735; 83880; 84145; 84484; 85025; 85027; 85610; 85730; 87040; 87637; 90471; 90656; 93005; 94002; 94618; 94640; 96374; 96375; 99285; A9270; G0008; G0378; G0379; J0696; J1100; J1200; J1956; J2919; J7512; Q9967